=== PATIENT | male | born 1995 | race Caucasian/White ===

== ENCOUNTER 2023-12-15 09:54 | Emergency (ER) | payer MEDICAID, SELFPAY ==
[2023-12-15] VITALS (23 sets, daily range): BP systolic 126–148; BP diastolic 82–97; PULSE 81–113; RESP 13–28; O2SAT 98–100
--- NOTE | ~2023-12-15 | XR_ITS ---
EXAMINATION: XR chest 1V portable DATE: 12/15/2023 11:08 INDICATION: Cough and vomiting. TECHNIQUE: A single frontal view of the chest was obtained. COMPARISON: None. FINDINGS: There is no pneumonia, pleural effusion, or pneumothorax. The heart size is normal. IMPRESSION: 1. No acute cardiopulmonary disease. Reviewed, dictated and finalized at location A.
--- NOTE | 2023-12-15 10:18 | ECG_ITS ---
Test Date: 2023-12-15 11:31:18 Measurements Intervals [place] Rate: 76 P: 52 CT: 128 QRS: 80 QRSD: 85 T: 70 QT: 392 QTc: 443 Interpretive Statements SINUS RHYTHM ST ELEVATION IN ATERIOR LEADS, PROBABLE NORMAL EARLY REPOL PATTERN BORDERLINE ECG No previous ECG available for comparison Electronically Signed On 12-15-2023 11:39:47 CDT by Abner Unger D.O.
[2023-12-15] MEDS: ONDANSETRON INJ 4 MG/2 ML VIAL IV PUSH (10:29)
[2023-12-15] MEDS: LORazepam INJ (*CRX) 2 MG/ML VIAL 1 MG IV PUSH (10:29)
[2023-12-15 10:53] LABS: Basophils Absolute Auto 0.1 K/mm3 (0.0-0.1); Basophils Percent Auto 1.1 % (0.2-1.2); Eosinophils Absolute Auto 0.1 K/mm3 (0-0.3); Eosinophils Percent Auto 0.9 % (0-4.4); Hematocrit 42.5 % (42.0-52.0); Hemoglobin 15.3 g/dL (14.0-18.0); Immature Granulocyte Absolute 0.01 K/mm3 (0.00-0.031); Immature Granulocyte Percent A 0.2 % (0-0.5); Lymphocytes Absolute Auto 1.63 K/mm3 (0.9-3.2); Lymphocytes Percent Auto 30.7 % (18.3-44.2); Mean Corpuscular Hemoglobin 34.2 pg (26-34); Mean Corpuscular Volume 94.9 fl (80-100); Mean Platelet Volume 10.2 fl (7.4-10.4); Monocytes Absolute Auto 0.6 K/mm3 (0.1-0.6); Monocytes Percent Auto 10.5 % (2.6-8.5); Neutrophils Percent Auto 56.6 % (45.5-73.1); Platelet Count Result 326 k/mm3 (150-375); Red Blood Count 4.48 M/mm3 (4.6-6.20); Red Cell Distribution Width 12.7 % (11.5-14.5); White Blood Count 5.3 K/mm3 (4.5-10.0)
[2023-12-15] MEDS: SODIUM CHLORIDE 0.9% IV 1,000 ML 999 ML IV CONT ×2 (11:00→12:16)
[2023-12-15 11:04] LABS: Alanine Aminotransferase 50 U/L (6-50); Albumin Level 5.4 g/dL (3.5-5.1); Alkaline Phosphatase 101 U/L (38-126); Anion Gap 17 mmol/L (4-12); Aspartate Amino Transferase 87 U/L (17-59); Blood Urea Nitrogen 12 mg/dL (9-20); Calcium 10.1 mg/dL (8.4-10.2); Carbon Dioxide 29 mmol/L (22-30); Chloride 89 mmol/L (98-107); Estimated Glomerular Filt Rate > 60; Glucose 126 mg/dL (65-110); Magnesium 1.7 mg/dL (1.6-2.3); Potassium 4.1 mmol/L (3.4-5.0); Sodium 135 mmol/L (137-145)
[2023-12-15 11:05] LABS: Ethanol < 10 mg/dL (<10); Lactic Acid Reflex 2.8 mmol/L (0.7-2.0)
[2023-12-15 11:07] LABS: INR 0.9; Prothrombin Time 12.4 Seconds (11.1-14.7)
[2023-12-15 11:08] LABS: Partial Thromboplastin Time 25.7 Seconds (22.3-36.8)
[2023-12-15] MEDS: THIAMINE 500 MG/NS 100 ML 500 MG/100 ML BAG 200 MG IVPB (11:24)
[2023-12-15 11:43] LABS: Procalcitonin 0.1 ng/mL
--- NOTE | 2023-12-15 11:56 | ED.GENADULT ---
HPI - General Adult General Chief complaint: Alcohol Stated complaint: I can't control my body x 1 hour Time Seen by Provider: 12/15/23 10:14 History of Present Illness HPI narrative: Patient is a 28-year-old gentleman who presents emergency department with chief complaint of I feel shaky. Patient reports that he normally drinks about a handle a day of alcohol patient reports approximately 2 days ago he decided that he wanted to stop drinking and stop drinking a handle per day patient reports his last drink was in the last 24 hours reports he feels very shaky reports that he has no prior history of seizures in the past Related Data Allergies Allergy/AdvReac Type Severity Reaction Status Date / Time amoxicillin Allergy Unknown Anaphylaxis Verified 12/15/23 11:25 Penicillins Allergy Unknown Anaphylaxis Verified 12/15/23 11:25 Review of Systems Review of Systems: A 10 system review of systems was completed on the patient and is negative except for what is stated in the HPI. Nursing and ancillary documentation was reviewed. [facility] Family History Family History Father Diabetes mellitus Grandparent Diabetes mellitus Hypertension Mother Hypertension Social History Social History Smoking status: Never smoker Alcohol intake: current Exam Narrative: GENERAL: Well-appearing, well-nourished, and in no acute distress. HEAD: Normocephalic, atraumatic. EYES: PERRLA and EOMI. ENT: Nares clear, no rhinorrhea or epistaxis. Mucous membranes moist. NECK: Supple. CHEST: Clear to auscultation. No respiratory distress. HEART: Regular rate and rhythm. No murmur heard. Normal peripheral pulses. ABDOMEN: Soft, nontender, nondistended, normal active bowel sounds. EXTREMITIES: Normal range of motion. No edema. SKIN: Warm, dry, no rash. NEURO: No focal deficits. Alert and oriented x3. Slightly tremulous PSYCH: Normal mood and affect. Course Vital Signs Vital signs: Vital Signs Pulse Rate 95 12/15/23 10:15 Respiratory Rate 28 H 12/15/23 10:15 Pulse Oximetry 100 12/15/23 10:15 Pulse Rate 94 12/15/23 12:47 Respiratory Rate 20 12/15/23 12:47 Blood Pressure 129/97 H 12/15/23 12:16 Pulse Oximetry 99 12/15/23 12:30 Medical Decision Making Vital Signs Vital Signs: Vital Signs Pulse Rate 95 12/15/23 10:15 Respiratory Rate 28 H 12/15/23 10:15 Pulse Oximetry 100 12/15/23 10:15 Pulse Rate 94 12/15/23 12:47 Respiratory Rate 20 12/15/23 12:47 Blood Pressure 129/97 H 12/15/23 12:16 Pulse Oximetry 99 12/15/23 12:30 Lab Data 12/15/23 10:47 12/15/23 10:47 Labs: Lab Results 12/15/23 12/15/23 12/15/23 Range/Units 10:47 13:35 14:09 WBC 5.3 (4.5-10.0) K/mm3 RBC 4.48 L (4.6-6.20) M/mm3 Hgb 15.3 (14.0-18.0) g/dL Hct 42.5 (42.0-52.0) % MCV 94.9 (80-100) fl MCH 34.2 H (26-34) pg MCHC 36.0 (32-36) g/dl RDW 12.7 (11.5-14.5) % Plt Count 326 (150-375) k/mm3 MPV 10.2 (7.4-10.4) fl Immature Gran % (Auto) 0.2 (0-0.5) % Neut % (Auto) 56.6 (45.5-73.1) % Lymph % (Auto) 30.7 (18.3-44.2) % [place] % (Auto) 10.5 H (2.6-8.5) % Eos % (Auto) 0.9 (0-4.4) % Baso % (Auto) 1.1 (0.2-1.2) % Lymph # (Auto) 1.63 (0.9-3.2) K/mm3 [place] # (Auto) 0.6 (0.1-0.6) K/mm3 Eos # (Auto) 0.1 (0-0.3) K/mm3 Baso # (Auto) 0.1 (0.0-0.1) K/mm3 Abs Immat Gran (auto) 0.01 (0.00-0.031) K/mm3 Absolute Neuts (auto) 3.0 (1.3-6.7) K/mm3 Absolute Nucleated RBC 0.000 (0.0-0.012) K/mm3 Nucleated RBC % 0.0 (0.0-0.2) % PT 12.4 (11.1-14.7) Seconds INR 0.9 APTT 25.7 (22.3-36.8) Seconds Sodium 135 L (137-145) mmol/L Potassium 4.1 (3.4-5.0) mmol/L Chloride 89 L (98-107) mmol/L Carbon Dioxide 29 (22-30) m
[2023-12-15] MEDS: MAGNESIUM SULF 1 GM/D5W 100 ML 1 GM/100 ML BAG IVPB (12:16)
[2023-12-15 13:45] LABS: Appearance Urine Clear (Clear); Bacteria Urine None Seen /hpf; Bilirubin Urine Negative (Negative); Blood Urine Negative (Negative); Color Urine Yellow (Yellow); Glucose Urine UA Negative (Negative); Ketones Urine 2+ mg/dL (Negative); Leukocyte Esterase Ur Negative LEU/UL (Negative); Nitrate Urine Negative (Negative); Non Pathogenic Casts 0-2; Protein Urine Trace mg/dL (Negative); Squamous Epithelial Cell Urine None Seen /hpf (Few); WBC Urine 0-5 /hpf (0-3); pH Urine 8.5 (5.0-9.0)
[2023-12-15 13:51] LABS: Reflex Lactic Acid Yes or No Add Lactic
[2023-12-15 14:00] LABS: Amphetamine Screen Urine Negative (Negative); Barbiturate Screen Urine Negative (Negative); Benzodiazepines Screen Urine Negative (Negative); Cannabinoid Screen Urine Positive (Negative); Cocaine Screen Urine Negative (Negative); Methadone Screen Urine Negative (Negative); Opiate Screen Urine Negative (Negative); Phencyclidine Screen Urine Negative (Negative)
[2023-12-15 14:05] LABS: Add Urine Microscopic? YES
[2023-12-15 14:32] LABS: Lactic Acid 0.7 mmol/L (0.7-2.0)
== END 2023-12-15 14:35 | disposition home or self-care (01) ==
PROVIDERS: Emergency Provider Emergency Medicine
DX: F10.230 Alcohol dependence with withdrawal, uncomplicated (principal); Y90.0 Blood alcohol level of less than 20 mg/100 ml; R94.31 Abnormal electrocardiogram [ECG] [EKG]
CPT/HCPCS: 36415; 71045; 80053; 80307; 81001; 83605; 83735; 84145; 85025; 85610; 85730; 93005; 96365; 96367; 96375; 99284; J2060; J2405; J3411; J3475; J7030

== ENCOUNTER 2024-03-31 11:02 | Emergency (ER) | payer OTHER, SELFPAY ==
[2024-03-31 11:03] VITALS: BP 142/98; PULSE 98; RESP 15; TEMP 36.8; O2SAT 98
[2024-03-31 12:00] VITALS: BP 136/97; PULSE 91; RESP 16; O2SAT 99
[2024-03-31 12:37] LABS: Basophils Absolute Auto 0.1 K/mm3 (0.0-0.1); Basophils Percent Auto 1.4 % (0.2-1.2); Hematocrit 45.2 % (42.0-52.0); Hemoglobin 16.4 g/dL (14.0-18.0); Lymphocytes Absolute Auto 1.47 K/mm3 (0.9-3.2); Lymphocytes Percent Auto 41.1 % (18.3-44.2); Mean Corpuscular HGB Conc 36.3 g/dl (32-36); Mean Corpuscular Hemoglobin 34.7 pg (26-34); Mean Corpuscular Volume 95.8 fl (80-100); Mean Platelet Volume 8.9 fl (7.4-10.4); Monocytes Absolute Auto 0.4 K/mm3 (0.1-0.6); Monocytes Percent Auto 10.9 % (2.6-8.5); Neutrophils Absolute Auto 1.7 K/mm3 (1.3-6.7); Neutrophils Percent Auto 46.6 % (45.5-73.1); Platelet Count Result 278 k/mm3 (150-375); Red Blood Count 4.72 M/mm3 (4.6-6.20); Red Cell Distribution Width 13.7 % (11.5-14.5); White Blood Count 3.6 K/mm3 (4.5-10.0)
[2024-03-31 12:47] LABS: Lactic Acid Reflex 3.3 mmol/L (0.7-2.0)
[2024-03-31 12:48] LABS: Alanine Aminotransferase 64 U/L (6-50); Alkaline Phosphatase 100 U/L (38-126); Anion Gap 15 mmol/L (4-12); Aspartate Amino Transferase 135 U/L (17-59); Blood Urea Nitrogen 7 mg/dL (9-20); Calcium 9.2 mg/dL (8.4-10.2); Carbon Dioxide 29 mmol/L (22-30); Chloride 98 mmol/L (98-107); Estimated CRCL calculation 134 ml/min; Estimated Glomerular Filt Rate > 60; Glucose 86 mg/dL (65-110); INR 0.9; Potassium 3.2 mmol/L (3.4-5.0); Prothrombin Time 12.3 Seconds (11.1-14.7); Sodium 142 mmol/L (137-145)
[2024-03-31 12:49] LABS: Partial Thromboplastin Time 24.5 Seconds (22.3-36.8)
--- NOTE | 2024-03-31 12:50 | ED.GENADULT ---
HPI - General Adult General Chief complaint: GI Bleed Stated complaint: blood in stool Time Seen by Provider: 03/31/24 11:58 History of Present Illness HPI narrative: 28-year-old male present to the emergency department for evaluation for blood when he wiped his bottom. Patient states this morning he had a bowel movement and noticed some blood when he wiped. Patient denies any pain with this. Patient denies any current abdominal pain. Patient is not on any blood thinners. Patient is unsure if he has any history of hemorrhoids. Related Data Allergies Allergy/AdvReac Type Severity Reaction Status Date / Time amoxicillin Allergy Unknown Anaphylaxis Verified 12/15/23 11:25 Penicillins Allergy Unknown Anaphylaxis Verified 12/15/23 11:25 Review of Systems Review of Systems: All systems reviewed & are unremarkable except as noted in HPI and below PMFSH Family History Family History Father Diabetes mellitus Grandparent Diabetes mellitus Hypertension Mother Hypertension Social History Social History Smoking status: Never smoker Alcohol intake: current Exam Narrative: APPEARANCE: Well appearing, no pain, no distress, well-nourished. HEAD: normocephalic, atraumatic. EYES: PERRLA/EOMI, conjunctivae clear. NOSE: Normal no drainage EARS:TMS clear with good light reflex. THROAT: Pharynx clear, no exudate. NECK: Supple. No adenopathy, no masses. RESPIRATORY: Airway patent, respirations nonlabored. Clear to auscultation bilaterally, no rales, rhonchi, wheezing. CARDIOVASCULAR: Regular rate and rhythm without murmurs rubs or gallops. ABDOMINAL: Soft, nontender, nondistended, normal bowel sounds MUSCULOSKELETAL: Moves all extremities. Strength/ROM intact, No edema, No calf tenderness. NEURO: Alert. Cranial nerves II through XII intact. Good gait. Good coordination SKIN: Warm, dry. Normal Color Rectal exam: Hemoccult negative stool with no external hemorrhoids visualized and no internal hemorrhoids palpated Course Vital Signs Vital signs: Vital Signs Temperature 98.2 F 03/31/24 11:03 Pulse Rate 98 03/31/24 11:03 Respiratory Rate 15 03/31/24 11:03 Blood Pressure 142/98 H 03/31/24 11:03 Pulse Oximetry 98 03/31/24 11:03 Oxygen Delivery Room Air 03/31/24 11:03 Temperature 98.2 F 03/31/24 11:03 Pulse Rate 80 03/31/24 13:00 Respiratory Rate 16 03/31/24 13:00 Blood Pressure 123/87 03/31/24 13:00 Pulse Oximetry 100 03/31/24 13:00 Oxygen Delivery Room Air 03/31/24 11:03 Medical Decision Making MDM Narrative Medical decision making narrative: 28-year-old male presents to the emergency department for evaluation for blood in his stool. Patient is afebrile with no leukocytosis and hemoglobin of 16.4. The patient does have an elevated lactic acid of 3.3 patient has no abdominal tenderness to palpation. Patient is being treated with a L of IV fluid. Patient was encouraged to increase his stool softeners and hose close follow-up with GI. All questions concerns were addressed. Differential Diagnosis Differential Diagnosis: Anal fissure, internal hemorrhoids, external hemorrhoids Vital Signs Vital Signs: Vital Signs Temperature 98.2 F 03/31/24 11:03 Pulse Rate 98 03/31/24 11:03 Respiratory Rate 15 03/31/24 11:03 Blood Pressure 142/98 H 03/31/24 11:03 Pulse Oximetry 98 03/31/24 11:03 Oxygen Delivery Room Air 03/31/24 11:03 Temperature 98.2 F 03/31/24 11:03 Pulse Rate 80 03/31/24 13:00 Respiratory Rate 16 03/31/24 13:00 Blood Pressure 123/87 03/31/24 13:00 Pulse Oximetry 100 03/31/24 13:00 Oxygen Delivery Room Air 03/31/24 11:03 Lab Data Lab results reviewed: Yes I reviewed the patient's lab results. 03/31/24 12:33 03/31/24 12:33 Labs: Lab Results 03/31/24 Range/Units
[2024-03-31 13:00] VITALS: BP 123/87; PULSE 80; RESP 16; O2SAT 100
[2024-03-31] MEDS: SODIUM CHLORIDE 0.9% IV 1,000 ML 999 ML IV CONT (13:00)
[2024-03-31 15:35] LABS: Reflex Lactic Acid Yes or No Add Lactic
== END 2024-03-31 13:20 | disposition home or self-care (01) ==
PROVIDERS: Emergency Provider Emergency Medicine
DX: K92.1 Melena (principal)
CPT/HCPCS: 36415; 80053; 83605; 85025; 85610; 85730; 99283; J7030

== ENCOUNTER 2024-09-11 10:30 | Emergency (ER) | payer BC, OTHER, SELFPAY ==
[2024-09-11] VITALS (8 sets, daily range): BP systolic 120–139; BP diastolic 70–92; PULSE 81–97; RESP 16–23; TEMP 36.4–37.2; O2SAT 96–100
--- NOTE | 2024-09-11 10:49 | ECG_ITS ---
Test Date: 2024-09-11 11:19:59 Measurements Intervals [place] Rate: 64 P: 69 HI: 158 QRS: 81 QRSD: 102 T: 76 QT: 427 QTc: 443 Interpretive Statements SINUS RHYTHM WITH MARKED SINUS ARRHYTHMIA PEAKED T WAVES- CONSIDER HYPERKALEMIA BASELINE ARTIFACT- I, II, III, AVR, AVL, AVF, V1-V6 ABNORMAL ECG Compared to ECG 12/15/2023 11:31:18 PEAKED T WAVES NOW PRESENT Electronically Signed On 09-11-2024 11:30:21 CDT by Abner Unger D.O.
--- NOTE | 2024-09-11 10:59 | ED.GENADULT ---
HPI - General Adult General Chief complaint: Nausea/Vomiting/Diarrhea Stated complaint: anxiety, flu a Time Seen by Provider: 09/11/24 10:43 History of Present Illness HPI narrative: 28-year-old male presents emergency department for evaluation for nausea vomiting and recent diagnosis of influenza. Patient was diagnosed with flu on Saturdays had persistent nausea vomiting decreased p.o. intake since then. Patient does prior history heavy alcohol abuse but has only been having 2 drinks a day. Patient does live with his mother. Patient does complain of some abdominal cramping but denies any abdominal pain. Patient is anxious upon arrival. Related Data Allergies Allergy/AdvReac Type Severity Reaction Status Date / Time amoxicillin Allergy Unknown Anaphylaxis Verified 09/11/24 11:07 Penicillins Allergy Unknown Anaphylaxis Verified 09/11/24 11:07 Review of Systems Review of Systems: All systems reviewed & are unremarkable except as noted in HPI and below PMFSH Family History Family History Father Diabetes mellitus Grandparent Diabetes mellitus Hypertension Mother Hypertension Social History Social History Smoking status: Never smoker Alcohol intake: current Exam Narrative: APPEARANCE: Ill-appearing HEAD: normocephalic, atraumatic. EYES: PERRLA/EOMI, conjunctivae clear. NOSE: Normal no drainage EARS:TMS clear with good light reflex. THROAT: Pharynx clear, no exudate. NECK: Supple. No adenopathy, no masses. RESPIRATORY: Airway patent, respirations nonlabored. Clear to auscultation bilaterally, no rales, rhonchi, wheezing. CARDIOVASCULAR: Regular rate and rhythm without murmurs rubs or gallops. ABDOMINAL: Soft, nontender, nondistended, normal bowel sounds MUSCULOSKELETAL: Moves all extremities. Strength/ROM intact, No edema, No calf tenderness. NEURO: Alert. Cranial nerves II through XII intact. Grossly intact SKIN: Warm, dry. Normal Color Course Vital Signs Vital signs: Vital Signs Temperature 97.6 F 09/11/24 10:49 Pulse Rate 96 09/11/24 10:49 Respiratory Rate 22 H 09/11/24 10:49 Blood Pressure 135/90 09/11/24 10:49 Pulse Oximetry 100 09/11/24 10:49 Oxygen Delivery Room Air 09/11/24 10:49 Temperature 97.7 F 09/11/24 14:39 Pulse Rate 96 09/11/24 14:39 Respiratory Rate 16 09/11/24 14:39 Blood Pressure 120/70 09/11/24 14:39 Pulse Oximetry 100 09/11/24 14:39 Oxygen Delivery Room Air 09/11/24 10:49 Medical Decision Making MDM Narrative Medical decision making narrative: 28-year-old male presents emergency department for evaluation for nausea vomiting. Patient is currently afebrile with no leukocytosis hemoglobin of 16. No acute abnormalities on the patient's CMP patient does have a mildly elevated anion gap and blood glucose but patient was treated with IV fluids. Patient did have an elevated lactic acid that was 4.0 but did improved 1.0 with rehydration. On re-evaluation patient states he does feel significantly improved and is resting comfortably. Patient is tolerating p.o.. Patient was negative plans a history and for COVID. Patient was discharged home with Ativan for anxiety, Zofran for nausea control and instructions to follow a clear liquid diet. Differential Diagnosis Differential Diagnosis: Alcohol withdrawal, nausea vomiting diarrhea, dehydration, gastroenteritis, colitis Vital Signs Vital Signs: Vital Signs Temperature 97.6 F 09/11/24 10:49 Pulse Rate 96 09/11/24 10:49 Respiratory Rate 22 H 09/11/24 10:49 Blood Pressure 135/90 09/11/24 10:49 Pulse Oximetry 100 09/11/24 10:49 Oxygen Delivery Room Air 09/11/24 10:49 Temperature 97.7 F 09/11/24 14:39 Pulse Rate 96 09/11/24 14:39 Respiratory Rate 16 09/11/24 14:39 Blood Pressure 120/70 09/11/24 14:39 Pulse Oximetry 100 09/11/24 14:39 Oxygen Delivery Room Air 09/11/24 10:49 Lab Data Lab results reviewed: Yes I reviewed the patient's lab results. 09/11/24 11:15 09/11/24 11:15 Labs: Lab Results 09/11/24 09/11/24 Range/Units 11:15 13:41 WBC 7.5 (4.5-10.0) K/mm3 RBC 4.82 (4.6-6.20) M/mm3 Hgb 16.0 (14.0-18.0) g/dL Hct 45.0 (42.0-52.0) % MCV 93.4 (80-100) fl MCH 33.2 (26-34) pg MCHC 35.6 (32-36) g/dl RDW 11.9 (11.5-14.5) % Plt Count 302 (150-375) k/mm3 MPV 9.6 (7.4-10.4) fl Immature Gran % (Auto) 0.7 H (0-0.5) % Neut % (Auto) 75.8 H (45.5-73.1) % Lymph % (Auto) 15.1 L (18.3-44.2) % [place] % (Auto) 5.4 (2.6-8.5) % Eos % (Auto) 2.5 (0-4.4) % Baso % (Auto) 0.5 (0.2-1.2) % Lymph # (Auto) 1.13 (0.9-3.2) K/mm3 [place] # (Auto) 0.4 (0.1-0.6) K/mm3 Eos # (Auto) 0.2 (0-0.3) K/mm3 Baso # (Auto) 0.0 (0.0-0.1) K/mm3 Abs Immat Gran (auto) 0.05 H (0.00-0.031) K/mm3 Absolute Neuts (auto) 5.7 (1.3-6.7) K/mm3 Absolute Nucleated RBC 0.000 (0.0-0.012) K/mm3 Nucleated RBC % 0.0 (0.0-0.2) % Sodium 140 (137-145) mmol/L Potassium 3.6 (3.4-5.0) mmol/L Chloride 99 (98-107) mmol/L Carbon Dioxide 16 L (22-30) mmol/L Anion Gap 25 H (4-12) mmol/L BUN 13 D (9-20) mg/dL Creatinine 0.71 (0.7-1.3) mg/dL Estim Creat Clear Calc 129 ml/min Estimated GFR > 60 (59 - ) Glucose 151 H (65-110) mg/dL Lactic Acid 4.4 H* 1.0 (0.7-2.0) mmol/L Calcium 9.5 (8.4-10.2) mg/dL Total Bilirubin 0.7 (0.2-1.3) mg/dL AST 210 H (17-59) U/L ALT 81 H (6-50) U/L Alkaline Phosphatase 105 (38-126) U/L Total Protein 9.0 H (6.3-8.2) g/dL Albumin 5.3 H (3.5-5.1) g/dL Lipase 123 (23-300) U/L Influenza A (RT-PCR) Negative (Negative) Influenza B (RT-PCR) Negative (Negative) RSV (RT-PCR) Negative (Negative) SARS-CoV-2 RNA (RT-PCR) Negative (Negative) Discharge Plan Discharge Clinical Impression: Nausea and vomiting Patient Disposition: Home, Self-Care Condition: Stable Instructions: Antibiotic Form, Clear Liquid Diet (ED), Acute Nausea and Vomiting (ED) Additional Instructions: Ativan as needed for anxiety. Zofran as needed for nausea control. Clear liquid diet for the next 1-3 days. Advance to bland diet as tolerated. Have close follow-up with your primary care physician. If you have any worsening symptoms then please call or return to the emergency department. Patient Language: Polish Prescriptions: New lorazepam [Ativan] 0.5 mg tablet 0.5 mg PO BID PRN (Reason: anxiety) Qty: 10 0RF ondansetron 4 mg tablet,disintegrating 4 mg PO Q8H PRN (Reason: nausea and vomiting) Qty: 14 0RF No Action chlordiazepoxide HCl 25 mg capsule 25 mg PO Q6-12H PRN (Reason: alcohol withdrawal) Qty: 15 0RF Rx Instructions: day 1 50 mg every 6-12 hrs, day 2 25mg every 6 hrs, day 3 25mg twice a day, day 4 25mg at bedtime Follow-up/Referrals: UNKNOWN,DOCTOR [Primary Care Provider] - Stand Alone Forms: Work/School Release IP
[2024-09-11] MEDS: SODIUM CHLORIDE 0.9% IV 2,000 ML 999 ML IV CONT (11:07)
[2024-09-11] MEDS: LORazepam INJ (*CRX) 2 MG/ML VIAL IV PUSH (11:08)
[2024-09-11] MEDS: ONDANSETRON INJ 4 MG/2 ML VIAL IV PUSH (11:09)
[2024-09-11 11:23] LABS: Basophils Percent Auto 0.5 % (0.2-1.2); Eosinophils Absolute Auto 0.2 K/mm3 (0-0.3); Eosinophils Percent Auto 2.5 % (0-4.4); Immature Granulocyte Absolute 0.05 K/mm3 (0.00-0.031); Immature Granulocyte Percent A 0.7 % (0-0.5); Lymphocytes Absolute Auto 1.13 K/mm3 (0.9-3.2); Lymphocytes Percent Auto 15.1 % (18.3-44.2); Mean Corpuscular HGB Conc 35.6 g/dl (32-36); Mean Corpuscular Hemoglobin 33.2 pg (26-34); Mean Corpuscular Volume 93.4 fl (80-100); Mean Platelet Volume 9.6 fl (7.4-10.4); Monocytes Absolute Auto 0.4 K/mm3 (0.1-0.6); Monocytes Percent Auto 5.4 % (2.6-8.5); Neutrophils Absolute Auto 5.7 K/mm3 (1.3-6.7); Neutrophils Percent Auto 75.8 % (45.5-73.1); Platelet Count Result 302 k/mm3 (150-375); Red Blood Count 4.82 M/mm3 (4.6-6.20); Red Cell Distribution Width 11.9 % (11.5-14.5); White Blood Count 7.5 K/mm3 (4.5-10.0)
[2024-09-11 11:35] LABS: Alanine Aminotransferase 81 U/L (6-50); Albumin Level 5.3 g/dL (3.5-5.1); Alkaline Phosphatase 105 U/L (38-126); Anion Gap 25 mmol/L (4-12); Aspartate Amino Transferase 210 U/L (17-59); Bilirubin,Total 0.7 mg/dL (0.2-1.3); Blood Urea Nitrogen 13 mg/dL (9-20); Calcium 9.5 mg/dL (8.4-10.2); Carbon Dioxide 16 mmol/L (22-30); Chloride 99 mmol/L (98-107); Estimated CRCL calculation 129 ml/min; Estimated Glomerular Filt Rate > 60; Glucose 151 mg/dL (65-110); Lactic Acid Reflex 4.4 mmol/L (0.7-2.0); Lipase 123 U/L (23-300); Potassium 3.6 mmol/L (3.4-5.0); Sodium 140 mmol/L (137-145)
--- OUTSIDE RECORDS SUMMARY | 2024-09-11 11:52 | XMS_ITS | Clinical Summary ---
Author Organization [facility] Address [address] [place] [address] Phone Care Team Providers Care Product Marketing Analyst Name Role Phone Mendoza Izquierdo APRN, EXECUTIVE CYBER LEADER Primary Care Pr ovider Allergies Active Allergy Reactions Criticality Noted Date Comments Penicillins Anaphylaxis,Swelling High 05/04/2020 Medications naltrexone (DEPADE) 50 MG Tablet Take 50 mg by mouth daily. Active escitalopram (LEXAPRO) 10 MG Tablet Take 10 mg by mouth daily. Active prazosin (MINIPRESS) 1 MG Capsule Take 1 mg by mouth nightly. Active ondansetron (ZOFRAN-ODT) 4 MG TABLET DISPERSIBLE Take 1 Tablet by mouth every 8 hours as needed for Nausea - 1st line. 15 Tablet 09/09/2024 Active Active Problems Problem Noted Date Diagnosed Date Alcohol use disorder, moderate, dependence 07/25 CINTHYA (generalized anxiety disorder) 06/18/2024 Alcohol use disorder, moderate, in early remissi on 04/09/2024 Encounters Date Type Department Care Team Description 09/10/2024 Travel 08/29/2024 8:30 AM CDT Outpatient Clinic Visit [facility] [address] [place] [address] Yessi Carrillo, PAM Alcohol use disorder, moderate, in early remission (HCC) (Primary Dx); CINTHYA (generalized anxiety disorder) Discharge Disposition: Discharged to home or Selfcare 08/27/2024 Travel 08/08/2024 10:45 AM PHOTOGRAPHY COLORIST Outpatient Clinic Visit [facility] [address] [place] [address] Yessi Carrillo LCPC Alcohol use disorder, moderate, in early remission (HCC) (Primary Dx); CINTHYA (generalized anxiety disorder) Discharge Disposition: Discharged to home or Selfcare 08/08/2024 Travel 08/05/2024 Travel 07/25/2024 11:00 AM PHOTOGRAPHY COLORIST Outpatient [facility] [address] [facility] [place] [address] Yessi Carrillo LCPC Alcohol use disorder, moderate, dependence (HCC) (Primary Dx); CINTHYA (generalized anxiety disorder) Discharge Disposition: Discharged to home or Selfcare 07/23/2024 Travel 07/15/2024 Travel 07/11/2024 10:00 AM PHOTOGRAPHY COLORIST Outpatient [facility] [address] [place] [address] Fouzia Jamil LCPC Alcohol use disorder, moderate, dependence (HCC) (Primary Dx); CINTHYA (generalized anxiety disorder) Discharge Disposition: Discharged to home or Selfcare 07/10/2024 Travel 07/08/2024 Travel 07/02/2024 Telephone [facility] [address] [facility] [place] [address] Fouzia Jamil LCPC 07/01/2024 Travel 06/25/2024 10:30 AM PHOTOGRAPHY COLORIST Outpatient Clinic [facility] [place] [address] Fouzia Jamil LCPC CINTHYA (generalized anxiety disorder) (Primary Dx); Alcohol use disorder, moderate, in early remission (HCC) Discharge Disposition: Discharged to home or Selfcare 06/25/2024 8:30 AM PHOTOGRAPHY COLORIST Outpatient Clinic [facility] [address] [facility] [place] [address] Fouzia Jamil LCPC CINTHYA (generalized anxiety disorder) (Primary Dx); Alcohol use disorder, moderate, in early remission (HCC) Discharge Disposition: Discharged to home or Selfcare 06/24/2024 Travel 06/18/2024 10:30 AM PHOTOGRAPHY COLORIST Outpatient Clinic Visit [facility] [address] [place] [phone] Fouzia Jamil LCPC CINTHYA (generalized anxiety disorder) (Primary Dx); Alcohol use disorder, moderate, in early remission (HCC) Discharge Disposition: Discharged to home or Selfcare 06/18/2024 Travel from Last 3 Months Immunizations Immunization Administration Dates Next Due Covid-19, Mrna, Lnp-s, Pf, 3 0 Mcg/0.3 Ml Dose (Kongregate) 09/07/2020 DTAP VACCINE 08/30/2002,,02/04/1998,11/20 Hepatitis A Vaccine, Pediatric/adolescent, 2 Dose Schedule 10/13/2008,04/14/2008 Hepatitis A, Pediatric, Unsp ecified Formulation 10/13/2008,04/14/2008 Hepatitis B Vaccine, Pediatric/adolescent 1997,1997 Hib Vaccine,unspecified Formulation 04/07/1998,0 02/04/1998,1997 Inactivated Polio Vaccine 09/02/2002,05/1999,02/04/1998,11/20 Influenza Vaccine, Quadrivalent, PF 03/18/2021 Influenza Vaccine,unspecifie d Formulation 04/14/2008 MMR Vaccine 08/30/2002,12/31/1998 Meningococcal C Conjugate Vaccine 10/13/2008 TDAP Vaccine 04/17/2020,10/13/2008 Varicella Vaccine Live 04/14/2008,10/05/1998 Family History Medical History Relation Name Comments Diabetes Father Poncho Depression Mother Padmaja Diabetes Mother Padmaja High Cholesterol Mother Padmaja Hypertension Mother Padmaja Alcohol Abuse Paternal Grandfather Alcohol Abuse Paternal Uncle Relation Name Status Comments Father Poncho Alive Maternal Grandfather Alive Maternal Grandmother Alive Mother Padmaja Alive Paternal Grandfather Paternal Grandmother Paternal Uncle Social History Tobacco Use Types Packs/Day Years Used Date Smoking Tobacco: Never Smokeless Tobacco: Never Tobacco Cessation:Counseling Given: No Alcohol Use Standard Drinks/Week Comments Not Currently 100 (1 standard drink = 0.6 oz p ure alcohol) Currrently in recovery [facility] Utilities Answer Date Recorded In the past 12 months has e electric, gas, oil, or water company threatened to shut off services in your home? No 05/01/2024 Social Connection and Isolation Panel [NHANES] A nswer Date Recorded In a typical week, how many times do you talk on the phone with family, friends, or neighbors? Patient declined 05/01/2024 How often do you get togethe r with friends or relatives? Patient declined 05/01/2024 How often do you attend jain or muslim serv ices? Patient declined 05/01/2024 Do you belong to any clubs o r organizations such as jain groups, unions, fraternal or athletic groups, or school groups? No 05/01/2024 How often do you attend meet ings of the clubs or organizations you belong to? Patient declined 05/01/2024 Are you , , di vorced, , never , or living with a partner? Never 05/01/2024 AUDIT-C Answer Date Recorded Q1: How often do you have a drink containing alc ohol? Patient declined 05/01/2024 Q2: How many drinks containi ng alcohol do you have on a typical day when you are drinking? Patient declined 05/01/2024 Q3: How often do you have si x or more drinks on one occasion? Patient declined 05/01/2024 Overall Financial Resource Strain (CARDIA) Answe r Date Recorded How hard is it for you to pa y for the very basics like food, housing, medical care, and heating? Not very hard 05/01/2024 PHQ-2 Answer Date Recorded Total Score - Questions 1-9 0 04/13 [facility] Occupat ional Health - Occupational Stress Questionnaire Answer Date Recorded Do you feel stress - tense, restless, nervous, or anxious, or unable to sleep at night because your mind is troubled all the time - these days? Patient declined 05/01/2024 Exercise Vital Sign Answer Date Recorde d On average, how many days pe r week do you engage in moderate to strenuous exercise (like a brisk walk)? Patient declined On average, how many minutes do you engage in exercise at this level? Patient declined 05/01/2024 Hunger Vital Sign Answer Date Recorded Within the past 12 months, y ou worried that your food would run out before you got the money to buy more. Patient declined Within the past 12 months, t he food you bought just didn't last and you didn't have money to get more. Patient declined PRAPARE - Transportation Answer Date Re corded In the past 12 months, has l ack of transportation kept you from medical appointments or from getting medications? No 04/13 In the past 12 months, has l ack of transportation kept you from meetings, work, or from getting things needed for daily living? No 05/01/2024 Housing Stability Vital Sign Answer Jason e Recorded In the last 12 months, was t here a time when you were not able to pay the mortgage or rent on time? Patient declined 05/01/20 24 Number of Times Moved in the Last Year Not on fi le 05/01/2024 At any time in the past 12 m [facility], were you homeless or living in a fci (including now)? Patient declined 05/01/2024 Sexually Active Control Partners Comments Not Currently Sex and Gender Information Value Date Recorded Sex Assigned at Not on file Legal Sex Male 2:35 PM CDT Gender Identity Not on file Sexual Orientation Not on file Last Filed Vital Signs Vital Sign Reading Time Taken Comments Blood Pressure 142/76 05/02/2024 3:14 PM PHOTOGRAPHY COLORIST Pulse 100 05/02/2024 3:14 PM PHOTOGRAPHY COLORIST Temperature 36.9 C (98.5 F) 05/02/2024 3:14 PM PHOTOGRAPHY COLORIST Respiratory Rate 16 05/02/2024 3:14 PM PHOTOGRAPHY COLORIST Oxygen Saturation 97% 05/02/2024 3:14 PM PHOTOGRAPHY COLORIST Inhaled Oxygen Concentration - - Weight 72 kg (158 lb 12.8 oz) 05/02/2024 3:14 PM PHOTOGRAPHY COLORIST Height 182.9 cm (6') 05/02/2024 3:14 PM PHOTOGRAPHY COLORIST Body Mass Index 21.54 05/02/2024 3:14 PM PHOTOGRAPHY COLORIST Plan of Treatment Upcoming Encounters Date Type Department Care Team (Latest Contact Info) Description 09/12/2024 11:15 AM CDT Outpatient [facility] [address] [place] [address] Yessi Carrillo LCPC [address] [place] [address] Discharge Disposition: Discharged to home or Selfcare 09/26/2024 8:30 AM CDT Outpatient Clinic Visit [facility] [address] [place] [address] Yessi Carrillo LCPC 1 [place] [address] 05/01/2025 3:15 PM PHOTOGRAPHY COLORIST Office Visit [facility] Medical [facility] [address] [place] [address] Mendoza Izquierdo, VETERINARY X RAY OPERATOR, EXECUTIVE CYBER LEADER [address] [address] Health Maintenance Due Date Last Done Comments Hepatitis C Virus (HCV) Screening 1997 Hepatitis B Immunization (3 of 3 - 3-dose series) 04/02/1998 1997, 1997 Human Papillomavirus (HPV) Immunization (1 - Male 3-dose series) 2012 SARS-COV-2 Immunization (2 - season) 2024 09/07/2020 Influenza Immunization (Season Ended) 2025 03/18/2021, 04/14/2008 DTaP/Tdap/Td Immunization (7 - Td or Tdap) 04/17/2030 04/17/2020, 10/13/2008, 08/30/2002, Additional history exists Respiratory Syncytial Virus (RSV) Immunization (Adult) (1 - 1-dose 75+ series) 2072 TdaP Immunization Discontinued 04/17/2020, 10/13/2008 Meningococcal Immunization (ACWY) Aged Out No longer eligible based on patient's age to complete this topic Pneumococcal Immunization Combined Discontinued Rotavirus Immunization Aged Out No lo nger eligible based on patient's age to complete this topic Goals Goal Patient Goal Type Associated Problems Recent Progress Patient-Stated? Author I want to learn to not be codependent . Behavioral Health Improving( 9:42 AM CDT) Yes Fouzia Jamil, [facility] Note: Goal/Objective: Increase ability to set boundaries and cope with mental health symptoms. Anticipated Time Frame for Goal Completion: 6 months Goal Reviewed with: patient Readiness to change: Thinking about making a change Department associated with goal: [facility] Steps to achieve goal: will identify at least two coping skills/activities/habits that have helped to manage anxiety in the past. will identify at least three new coping skills/activities/habits that may help to prevent and/or cope with anxiety. 3. will identify a plan to implement coping skills and follow this plan for two weeks and evaluate the impact on anxiety 4. Will attend individual and/or group therapy at least 1x/month at least 6 sessions Insurance MEDICAID [facility] Care Teams Product Marketing Analyst Relationship Specialty Start Date End Date Mendoza Izquierdo APRN, EXECUTIVE CYBER LEADER [address] [place] [phone] PCP - General Advanced Practice Nurse 05/02/24
--- OUTSIDE RECORDS SUMMARY | 2024-09-11 11:52 | XMS_ITS | Encounter Summary ---
Author Organization [facility] Address [address] [place] [address] Phone Care Team Providers Care Retail Route Supervisor Name Role Phone Mendoza Izquierdo APRN, CNP Primary Care Pr ovider Encounter Details Date Type Department Care Team (Late st Contact Info) Description 07/02/2024 Telephone [facility] [address] [place] [phone] Fouzia Jamil, [facility] [address] [place] [address] Social History Tobacco Use Types Packs/Day Years Used Date Smoking Tobacco: Never Smokeless Tobacco: Never Alcohol Use Standard Drinks/Week Comments Not Currently 100 (1 standard drink = 0.6 oz p ure alcohol) Currrently in recovery [facility] Utilities Answer Date Recorded In the past 12 months has [employer], gas, oil, or water [employer] threatened to shut off services in your home? No 05/01/2024 Social Connection and Isolation Panel [NHANES] A nswer Date Recorded In a typical week, how many times do you talk on the phone with family, friends, or neighbors? Patient declined 05/01/2024 How often do you get togethe r with friends or relatives? Patient declined 05/01/2024 How often do you attend mormon or mormonism serv ices? Patient declined 05/01/2024 Do you belong to any clubs o r organizations such as mormon groups, unions, fraternal or athletic groups, or [...] Total Score - Questions 1-9 0 04/13 [facility] Occupat ional [facility] - Occupational Stress Questionnaire Answer Date Recorded [...] any time in the past 12 m [facility], were you homeless or living in a [place] [facility] facility (including now)? Patient declined 05/01/2024 Sexually Active Control Partners Comments Not Currently Sex and Gender Information Value Date Recorded Sex Assigned at Not on file Legal Sex Male 2:35 PM CDT Gender Identity Not on file Sexual Orientation Not on file documented as of this encounter Plan of Treatment Upcoming Encounters Date Type Department Care Team (Latest Contact Info) Description 09/12/2024 11:15 AM CDT Outpatient [facility] [address] [place] [address] Yessi Carrillo, LINE MANAGER [address] [place] [address] Discharge Disposition: Discharged to home or Selfcare 09/26/2024 8:30 AM CDT Outpatient Clinic Visit [facility] [address] [place] [address] Yessi Carrillo, LINE MANAGER [address] [place] [address] 05/01/2025 3:15 PM PARTNER ALLIANCE MANAGER Office Visit [facility] - Family Medicine [facility] [address] [place] [address] Mendoza Izquierdo APRN, PERFORMANCE MANAGER [address] [address] documented as of this encounter Goals Goal Patient Goal Type Associated Problems Recent Progress Patient-Stated? Author I want to learn to not be codependent . Behavioral Health Improving( 9:42 AM CDT) Yes Fouzia Jamil, [facility] Note: Goal/Objective: Increase ability to set boundaries and cope with mental health symptoms. Anticipated Time Frame for Goal Completion: 6 months Goal Reviewed with: patient Readiness to change: Thinking about making a change Department associated with goal: [facility] Steps to achieve goal: [...] at least 1x/month at least 6 sessions documented as of this encounter Visit Diagnoses Not on filedocumented in this encounter Additional Health Concerns Assessment Noted Time PHQ-9 Depression Total Score: 0 05/02/20 3:03 PM PARTNER ALLIANCE MANAGER documented as of this encounter Care Teams Retail Route Supervisor Relationship Specialty Start Date End Date Mendoza Izquierdo, YOLY, TE [address] [address] PCP - General Advanced Practice Nurse 05/02/24 documented as of this encounter
--- OUTSIDE RECORDS SUMMARY | 2024-09-11 11:52 | XMS_ITS | Clinical Summary ---
Author Organization [facility] Address [address] [place] [address] Care Team Providers Care Fermenter Wine Name Role Phone Irwin Campos MD Primary Care Provider [phone] [facility],non-owned Affiliates and Associated Physician Practices is amultiple site organization consisting of ambulatory clinics and hospital sitesin [place], [place], [place] and [place]. This disclosure is being madepursuant to the Care Everywhere program and may not contain all information available regarding this patient. Last updated 18.[facility] Allergies Active Allergy Reactions Criticality Noted Date Comments Penicillins Anaphylaxis,Swelling High 05/04/2020 Medications * Be aware that medications may not be up to date on this document. Alwaysverify current medications with the patient. Medication Sig Dispensed Refills Start Date End Date Status mirtazapine (REMERON) 30 MG tabletIndications:De pression with anxiety Take 1 (one) tablet by mouth at bedtime 30 tablet 06/28/2021 Active omeprazole (PRILOSEC) 20 MG capsule Take 1 (one) capsule by mouth once daily 30 capsule 2 06/29/2021 Active NAC 600 MG capsule TAKE 1 CAPSULE BY MOUTH TWICE A DAY 05/05/2021 Active gabapentin (NEURONTIN) 300 MG capsule TAKE 1 CAPSULE BY MOUTH THREE TIMES A DAY 05/05/2021 Active LATUDA 40 MG tablet TAKE 1 TABLET BY MOUTH EVERY DAY AFTER DINNER 05/15/2021 Active propranolol (INDERAL) 10 MG tablet Take 1 (one) tablet by mouth 3 times daily 05/05/2021 Active QUEtiapine (SEROQUEL) 300 MG tablet TAKE 1 TABLET BY MOUTH EVERY DAY AT BEDTIME 05/05/2021 Active hydrOXYzine HCl (Atarax) 25 MG tabletIndications:Bi polar disorder, current episode mixed, moderate (HCC) TAKE 1 TABLET BY MOUTH FOUR TIMES A DAY NEEDED FOR ITCHING 30 tablet 09/28/2022 Active lithium CR (Lithobid) 300 MG tabletIndications:Bi polar disorder, current episode mixed, moderate (HCC) TAKE 1 TABLET BY MOUTH EVERY 12 HOURS 60 tablet 1 11/11/2022 Active traZODone (Desyrel) 50 MG tabletIndications:Bi polar disorder, current episode mixed, moderate (HCC) TAKE 1-2 TABLETS BY MOUTH ONCE NIGHTLY NEEDED FOR INSOMNIA 60 tablet 1 12/02/2022 Active buPROPion XL 24hr (Wellbutrin-XL) 150 MG tabletIndications:Bi polar disorder, current episode mixed, moderate (HCC) TAKE 1 TABLET BY MOUTH EVERY DAY IN THE MORNING 30 tablet 02/22/2023 Active Active Problems Problem Noted Date Diagnosed Date Depression with anxiety 01/28/2021 Alcoholism 01/28/2021 Immunizations Name Administration Dates Next Due [email or web address] primary monoval ent 12+ yr 0.3mL Purple cap 09/07/2020 DTaP VACCINE IM (6wk-6yrs) 08/30/2002,,02/04/1998,11/20 HEP A PEDS 2 DOSE 10/13/2008,04/14/2008 HEP B VACCINE, PED/ADOL 1997,1997 HIB VACCINE 04/07/1998,02/04/1998,1997 INFLUENZA VACCINE 04/14/2008 INFLUENZA VACCINE, QUADR. (F LUZONE; FLULAVAL; FLUARIX; AFLURIA QUADRIVALENT; 6MO+), 0.5 ML (IIV4) 03/18/2021 MENINGOCOCCAL CONJUGATE (MCV4P) 10/13/2008 MMR 08/30/2002,12/31/1998 POLIO IPV 09/02/2002, 9,02/04/1998,11/20 TDAP (7yrs+) 04/17/2020,10/13/2008 VARICELLA 04/14/2008,10/05/1998 Family History Medical History Relation Name Comments Diabetes - Type 2 Father Diabetes - Type 2 Maternal Grandfather Depression Maternal Grandmother Other Maternal Grandmother heart p roblems Depression Mother Hypertension Mother Cancer - Other Paternal Grandfather Relation Name Status Comments Father Alive Maternal Grandfather Maternal Grandmother Mother Alive Paternal Grandfather Social History Tobacco Use Types Packs/Day Years Used Date Smoking Tobacco: Never Smokeless Tobacco: Never Tobacco Cessation:Counseling Given: Not Answered Alcohol Use Standard Drinks/Week Comments Not Currently 0 (1 standard drink = 0.6 oz pur e alcohol) sober since 12/2020 PHQ-2 Answer Date Recorded PHQ2 TOTAL SCORE 6 06/08/2022 Sex and Gender Information Value Date Recorded Sex Assigned at Male 01/27/2021 5:10 PM CDT Gender Identity Male 01/27/2021 5:10 PM CDT Sexual Orientation Not on file Last Filed Vital Signs Vital Sign Reading Time Taken Comments Blood Pressure 110/64 06/08/2022 3:19 PM EMBLEM FUSER TENDER Pulse 77 06/08/2022 3:19 PM EMBLEM FUSER TENDER Temperature 36.4 C (97.5 F) 02/08/2022 3:10 PM CDT Respiratory Rate 20 02/08/2022 3:10 PM CDT Oxygen Saturation 95% 06/08/2022 3:19 PM EMBLEM FUSER TENDER Inhaled Oxygen Concentration - - Weight 68.5 kg (151 lb) 06/08/2022 3:19 PM EMBLEM FUSER TENDER Height 185.4 cm (6' 1 ) 06/08/2022 3:19 PM EMBLEM FUSER TENDER Body Mass Index 19.92 06/08/2022 3:19 PM EMBLEM FUSER TENDER Plan of Treatment Health Maintenance Due Date Last Done Comments HEPATITIS B VACCINE (3 of 3 - 3-dose series) 04/02/1998 1997, 1997 HIV SCREENING 2012 HPV VACCINE (1 - Male 3-dose series) 2012 HEPATITIS C SCREENING 09/27/2015 PNEUMOCOCCAL VACCINE (1 of 2 - PCV) 2016 COVID-19 VACCINE (2 - season) 2024 09/07/2020 INFLUENZA VACCINE (#1) 2024 03/18/2021, 2007 DEPRESSION SCREENING 06/12/2024 06/08/2022, 02/08/2022, 01/06/2022 DTAP/TDAP/TD VACCINES (7 - Td or Tdap) 04/17/2030 04/17/2020, 10/13/2008, 08/30/2002, Additional history exists ZOSTER VACCINE (1 of 2) 10/02/2047 HIB VACCINE Aged Out 04/07/1998, 01/11, 1997 No longer eligible based on patient's age to complete this topic MENINGOCOCCAL GROUPS A/C/Y/W VACCINE Aged Out 10/13/2008 No longer eligible based on patient's age to complete this topic MENINGOCOCCAL (Group B) VACCINE SHARED DECISION-MAKING Aged Out No longer eligible based on patient's age to complete this topic Care Teams Fermenter Wine Relationship Specialty Start Date End Date Irwin Campos MD PCP - General Family Medicine 01/28/21
--- OUTSIDE RECORDS SUMMARY | 2024-09-11 11:52 | XMS_ITS | Encounter Summary ---
Author Organization [employer] Care Team Providers Care Belt Glass Sander Name Role Phone Mendoza Izquierdo APRN, CNP Primary Care Pr ovider Encounter Details Date Type Department Care Team (Latest Contact Info) Description 09/10/2024 Travel Social History Tobacco Use Types Packs/Day Years Used Date Smoking Tobacco: Never Smokeless Tobacco: Never Alcohol Use Standard Drinks/Week Comments Not Currently 100 (1 standard drink = 0.6 oz p ure alcohol) Currrently in recovery [facility] Utilities Answer Date Recorded In the past 12 months has [employer] electric, gas, oil, or water company threatened [...] declined 05/01/2024 How often do you attend scientologist or confucianist serv ices? Patient declined 05/01/2024 Do you belong to any clubs o r organizations such as scientologist groups, unions, fraternal or athletic groups, or [...] Total Score - Questions 1-9 0 04/13 [facility] - Occupational Stress [...] any time in the past 12 m [facility], were you homeless or living in a custodial (including now)? Patient declined 05/01/2024 Sexually Active [...] 09/12/2024 11:15 AM CDT Outpatient Clinic Visit [facility] [address] [place] [address] Yessi Carrillo LCPC [address] [place] [address] Discharge Disposition: Discharged to home or Selfcare 09/26/2024 8:30 AM CDT Outpatient Clinic Visit [facility] [address] [place] [address] Yessi Carrillo LCPC 1 [place] [address] 05/01/2025 3:15 PM ICT SALES ASSISTANT Office Visit [facility] - Family Medicine - [place] [address] [place] [id number] Mendoza Izquierdo APRN, MAINTENANCE AND OPERATIONS SUPERVISOR #[address] [address] documented as of this encounter Goals Goal Patient Goal Type Associated Problems Recent Progress Patient-Stated? Author I want to learn to not be codependent . Behavioral Health Improving( 9:42 AM CDT) Yes Fouzia Jamil LCPC Note: Goal/Objective: Increase ability to set boundaries and cope with mental health symptoms. Anticipated Time Frame for Goal Completion: 6 months Goal Reviewed with: patient Readiness to change: Thinking about making a change Department associated with goal: [facility] Steps to achieve [...] Depression Total Score: 0 05/02/20 3:03 PM ICT SALES ASSISTANT documented as of this encounter Care Teams Belt Glass Sander Relationship Specialty Start Date End Date Mendoza Izquierdo, YOLY, TE [address] [place] [address] PCP - General Advanced Practice Nurse 05/02/24 documented as of this encounter
[2024-09-11 12:08] LABS: Influenza A QL RT-PCR Negative (Negative); Influenza B QL RT-PCR Negative (Negative); RSV RNA, RT-PCR Negative (Negative); SARS-CoV-2 RNA PCR Negative (Negative)
[2024-09-11 13:21] LABS: Reflex Lactic Acid Yes or No Add Lactic
== END 2024-09-11 14:41 | disposition home or self-care (01) ==
PROVIDERS: Emergency Provider Emergency Medicine
DX: R11.2 Nausea with vomiting, unspecified (principal); Z20.822 Contact with and (suspected) exposure to COVID-19
CPT/HCPCS: 36415; 80053; 83605; 83690; 85025; 87637; 93005; 96361; 96374; 96375; 99284; J2060; J2405; J7030

== ENCOUNTER 2024-10-08 20:44 | Emergency (ER) | payer BC, OTHER, SELFPAY ==
--- NOTE | ~2024-10-08 | XR_ITS ---
EXAM: XR ankle RT min 3V, XR foot RT min 3V DATE: 10/08/2024 21:10 (accession [id number]), 10/08/2024 21:09 (accession [id number]) HISTORY: crush injury . COMPARISON: None available. FINDINGS: Normal mineralization. Transverse fracture of the proximal fifth metatarsal, with 2 mm dis traction laterally, and extension of the fracture line to the intermetatarsal joint. Subtle transvers e lucency in the navicular. No other fracture detected No lytic or blastic lesion. Joint spaces are m aintained. No erosion or periosteal change. Soft tissue swelling over the fracture site. IMPRESSION: Transverse minimally distracted fracture of the proximal right fifth metatarsal (Reyez ty pe fracture). Subtle transverse lucency within the navicular, may represent artifact or nondisplaced fracture. Consider CT of the foot for further evaluation. Reviewed, dictated and finalized at location K. IMPRESSION: Transverse minimally distracted fracture of the proximal right fift h metatarsal (Reyez type fracture). Subtle transverse lucency within the navicu lar, may represent artifact or nondisplaced fracture. Consider CT of the foot f or further evaluation.
--- OUTSIDE RECORDS SUMMARY | 2024-10-08 20:47 | XMS_ITS | Clinical Summary ---
Author Organization [facility] Address [address] [place] [address] Phone Care Team Providers Care Account Associate Name Role Phone Mendoza Izquierdo APRN, PRINTING MACHINIST Primary Care Pr ovider Allergies Active Allergy [...] Encounters Date Type Department Care Team Description 09/26/2024 8:30 AM CDT Outpatient [facility] 1 [place] [address] Yessi Carrillo LCPC CINTHYA (generalized anxiety disorder) (Primary Dx) Discharge Disposition: Discharged to home or Selfcare 09/25/2024 Travel 09/12/2024 Travel 09/10/2024 Travel 08/29/2024 8:30 AM CDT Outpatient [facility] [address] [place] [address] Yessi Carrillo, DESIGN CHIEF Alcohol use disorder, moderate, in early remission (HCC) (Primary Dx); CINTHYA (generalized anxiety disorder) Discharge Disposition: Discharged to home or Selfcare 08/27/2024 Travel 08/08/2024 10:45 AM CLASSIFICATION OFFICER Outpatient Clinic [facility] 1 [facility] [place] [address] Yessi Carrillo, DESIGN CHIEF Alcohol use disorder, moderate, in early remission (HCC) (Primary Dx); CINTHYA (generalized anxiety disorder) Discharge Disposition: Discharged to home or Selfcare 08/08/2024 Travel 08/05/2024 Travel 07/25/2024 11:00 AM CLASSIFICATION OFFICER Outpatient Clinic [facility] 1 [facility] [place] [address] Yessi Carrillo, DESIGN CHIEF Alcohol use disorder, moderate, dependence (HCC) (Primary Dx); CINTHYA (generalized anxiety disorder) Discharge Disposition: Discharged to home or Selfcare 07/23/2024 Travel 07/15/2024 Travel 07/11/2024 10:00 AM CLASSIFICATION OFFICER Outpatient Clinic [facility] [address] [place] [address] Fouzia Jamil, DESIGN CHIEF Alcohol use disorder, moderate, dependence (HCC) (Primary Dx); CINTHYA (generalized anxiety disorder) Discharge Disposition: Discharged to home or Selfcare 07/10/2024 Travel from Last 3 Months Immunizations Immunization Administration Dates Next Due Covid-19, Mrna, Lnp-s, Pf, 3 0 Mcg/0.3 Ml Dose (DigiMeld) 09/07/2020 DTAP VACCINE 08/30/2002, 8,02/04/1998,11/20 Hepatitis A Vaccine, Pediatric/adolescent, 2 Dose Schedule [...] Paternal Uncle Relation Name Status Comments Father Pnocho Alive Maternal Grandfather Alive Maternal Grandmother Alive Mother Padmaja Alive Paternal Grandfather Paternal Grandmother Paternal Uncle Social History Tobacco Use Types Packs/Day Years Used Date Smoking Tobacco: Never Smokeless Tobacco: Never Tobacco Cessation:Counseling Given: No Alcohol Use Standard Drinks/Week Comments Not Currently 100 (1 standard drink = 0.6 oz p ure alcohol) Currrently in recovery [facility] Utilities Answer Date Recorded In the past 12 months has e electric, gas, oil, or water [employer] threatened to shut off services in your home? No 05/01/2024 Social Connection and Isolation Panel [NHANES] A nswer Date Recorded In a typical week, how many times do you talk on the phone with family, friends, or neighbors? Patient declined 05/01/2024 How often do you get togethe r with friends or relatives? Patient declined 05/01/2024 How often do you attend christian or presybeterian serv ices? Patient declined 05/01/2024 Do you belong to any clubs o r organizations such as christian groups, unions, fraternal or athletic groups, or [...] Total Score - Questions 1-9 0 04/13 [facility] ional Health - [...] any time in the past 12 m [facility], were you homeless or living in a detention (including now)? Patient declined 05/01/2024 Sexually Active Control Partners Comments Not Currently Sex and Gender Information Value Date Recorded Sex Assigned at Not on file Legal Sex Male 2:35 PM CDT Gender Identity Not on file Sexual Orientation Not on file Last Filed Vital Signs Vital Sign Reading Time Taken Comments Blood Pressure 142/76 05/02/2024 3:14 PM CLASSIFICATION OFFICER Pulse 100 05/02/2024 3:14 PM CLASSIFICATION OFFICER Temperature 36.9 C (98.5 F) 05/02/2024 3:14 PM CLASSIFICATION OFFICER Respiratory Rate 16 05/02/2024 3:14 PM CLASSIFICATION OFFICER Oxygen Saturation 97% 05/02/2024 3:14 PM CLASSIFICATION OFFICER Inhaled Oxygen Concentration - - Weight 72 kg (158 lb 12.8 oz) 05/02/2024 3:14 PM CLASSIFICATION OFFICER Height 182.9 cm (6') 05/02/2024 3:14 PM CLASSIFICATION OFFICER Body Mass Index 21.54 05/02/2024 3:14 PM CLASSIFICATION OFFICER Plan of Treatment Upcoming Encounters Date Type Department Care Team (Latest Contact Info) Description 10/10/2024 9:15 AM CDT Outpatient Clinic Visit [facility] 1 [place] [address] Yessi Carrillo DESIGN CHIEF 1 [place] [address] Discharge Disposition: Discharged to home or Selfcare 10/17/2024 10:45 AM CDT Office Visit [facility] [address]2 [place] [address] Mendoza Izquierdo APRN, PRINTING MACHINIST #[address] [address] 05/01/2025 3:15 PM CLASSIFICATION OFFICER Office Visit [facility] [address] [place] [address] Mendoza Izquierdo APRN, PRINTING MACHINIST #[address] [address] Health Maintenance Due Date Last Done Comments Hepatitis C Virus (HCV) Screening 1997 Hepatitis B Immunization (3 of 3 - 3-dose series) 04/02/1998 1997, 1997 SARS-COV-2 Immunization ( season) 2024 09/07/2020 Influenza Immunization (Season Ended) [...] to not be codependent . Behavioral Health On track( 025 9:11 AM CDT) Yes Fouzia Jamil, [facility] Note: Goal/Objective: Increase ability to set boundaries and cope with mental health symptoms. Anticipated Time Frame for Goal Completion: 6 months Goal Reviewed with: patient Readiness to change: Thinking about making a change Department associated with goal: [facility] Steps to achieve goal: [...] 1x/month at least 6 sessions Insurance MEDICAID [place] Care Teams Account Associate Relationship Specialty Start Date End Date Mendoza Izquierdo APRN, PRINTING MACHINIST [address] [place] [phone] PCP - General Advanced Practice Nurse 05/02/24
--- OUTSIDE RECORDS SUMMARY | 2024-10-08 20:47 | XMS_ITS | Clinical Summary ---
Author Organization [facility] Address [address] [facility] [place] [address] Care Team Providers Care Industrial Hygiene Engineer Name Role Phone Irwin Campos MD Primary Care Provider [phone] Source Comments [facility],non-owned Affiliates and Associated Physician Practices is amultiple site organization consisting of ambulatory clinics and hospital sitesin [place], [place], [place] and [place]. This disclosure is being madepursuant to the Care Everywhere program and may not contain all information available regarding this patient. Last updated 18.[facility] Allergies Active Allergy Reactions Criticality Noted Date Comments Penicillins Anaphylaxis,Swelling High 05/04/2020 Medications * Be aware that medications may not be up to date on this document. Alwaysverify current medications with the patient. mirtazapine (REMERON) 30 MG tabletIndicatio ns:Depression with anxiety Take 1 (one) tablet by [...] 05/05/2021 Active hydrOXYzine HCl (Atarax) 25 MG tabletIndicatio ns:Bipolar disorder, current episode mixed, moderate (HCC) TAKE 1 TABLET BY MOUTH FOUR TIMES A DAY NEEDED FOR ITCHING 30 tablet 09/28/2022 Active lithium CR (Lithobid) 300 MG tabletIndicatio ns:Bipolar disorder, current episode mixed, moderate (HCC) TAKE 1 TABLET BY MOUTH EVERY 12 HOURS 60 tablet 1 11/11/2022 Active traZODone (Desyrel) 50 MG tabletIndicatio ns:Bipolar disorder, current episode mixed, moderate (HCC) TAKE 1-2 TABLETS BY MOUTH ONCE NIGHTLY NEEDED FOR INSOMNIA 60 tablet 1 12/02/2022 Active buPROPion XL 24hr (Wellbutrin-XL) 150 MG tabletIndicatio ns:Bipolar disorder, current episode mixed, moderate (HCC) TAKE 1 TABLET BY MOUTH EVERY DAY IN THE MORNING 30 tablet 02/22/2023 Active Active Problems Problem Noted Date Diagnosed Date Depression with anxiety 01/28/2021 Alcoholism 01/28/2021 Immunizations Immunization Administration Dates Next Due [employer] Data primary monoval ent 12+ yr 0.3mL Purple cap 09/07/2020 DTaP VACCINE IM (6wk-6yrs) 08/30/2002,,02/04/1998,11/20 HEP A PEDS 2 DOSE 10/13/2008,04/14/2008 HEP B VACCINE, PED/ADOL 1997,1997 HIB VACCINE 04/07/1998,02/04/1998,1997 INFLUENZA VACCINE 04/14/2008 INFLUENZA VACCINE, QUADR. (F LUZONE; FLULAVAL; FLUARIX; AFLURIA QUADRIVALENT; 6MO+), 0.5 ML (IIV4) 03/18/2021 MENINGOCOCCAL ACWY (MCV4P) VAC IM 10/13/2008 MMR 08/30/2002,12/31/1998 POLIO IPV 09/02/2002, 9,02/04/1998,11/20 [...] Assigned at Male 01/27/2021 5:10 PM CDT Legal Sex Male 5:39 AM PLUG MACHINE OPERATOR Gender Identity Male 01/27/2021 5:10 PM CDT Sexual Orientation Not on file Last Filed Vital Signs Vital Sign Reading Time Taken Comments Blood Pressure 110/64 06/08/2022 3:19 PM PLUG MACHINE OPERATOR Pulse 77 06/08/2022 3:19 PM PLUG MACHINE OPERATOR Temperature 36.4 C (97.5 F) 02/08/2022 3:10 PM CDT Respiratory Rate 20 02/08/2022 3:10 PM CDT Oxygen Saturation 95% 06/08/2022 3:19 PM PLUG MACHINE OPERATOR Inhaled Oxygen Concentration - - Weight 68.5 kg (151 lb) 06/08/2022 3:19 PM PLUG MACHINE OPERATOR Height 185.4 cm (6' 1 ) 06/08/2022 3:19 PM PLUG MACHINE OPERATOR Body Mass Index 19.92 06/08/2022 3:19 PM PLUG MACHINE OPERATOR Plan of Treatment Health Maintenance Due Date Last Done Comments HEPATITIS B VACCINE (3 of 3 - 3-dose series) 04/02/1998 1997, 1997 HIV SCREENING 2012 HEPATITIS C SCREENING 09/27/2015 PNEUMOCOCCAL VACCINE (1 of 2 - PCV) 2016 COVID-19 VACCINE (2 - season) 2024 09/07/2020 DEPRESSION SCREENING 06/12/2024 06/08/2022, 02/08/2022, 01/06/2022 INFLUENZA VACCINE (Season Ended) 2025 03/18/2021, 04/14/2008 DTAP/TDAP/TD VACCINES (7 - Td or Tdap) 04/17/2030 04/17/2020, 10/13/2008, 08/30/2002, Additional history exists ZOSTER VACCINE (1 of 2) 10/02/2047 HIB VACCINE Aged Out 04/07/1998, 01/11, 1997 No longer eligible based on patient's age to complete this topic MENINGOCOCCAL GROUPS A/C/Y/W VACCINE Aged Out 10/13/2008 No longer eligible based on patient's age to complete this topic HPV VACCINE Aged Out No longer eligi ble based on patient's age to complete this topic MENINGOCOCCAL (Group B) VACCINE SHARED DECISION-MAKING Aged Out No longer eligible based on patient's age to complete this topic Care Teams Industrial Hygiene Engineer Relationship Specialty Start Date End Date Irwin Campos MD PCP - General Family Medicine 01/28/21
--- OUTSIDE RECORDS SUMMARY | 2024-10-08 20:47 | XMS_ITS | Encounter Summary ---
Author Organization [facility] Address [address] [place] [address] Phone Care Team Providers Care Hydrometer Calibrator Name Role Phone Mendoza Izquierdo APRN, CNP Primary Care Pr ovider Encounter Details Date Type Department Care Team (Late st Contact Info) Description 07/02/2024 Telephone [facility] 1 [place] [phone] Fouzia Jamil, [facility] 1 [place] [address] Social History Tobacco Use Types Packs/Day Years Used Date Smoking Tobacco: Never Smokeless Tobacco: Never Alcohol Use Standard Drinks/Week Comments Not Currently 100 (1 standard drink = 0.6 oz p ure alcohol) Currrently in recovery [facility] Utilities Answer Date Recorded In the past 12 months has [employer], gas, oil, or water [employer] threatened to shut off services in your home? No 05/01/2024 Social Connection and Isolation Panel [NHANES] A nswer Date Recorded In a typical week, how many times do you talk on the phone with family, friends, or neighbors? Patient declined 05/01/2024 How often do you get togethe r with friends or relatives? Patient declined 05/01/2024 How often do you attend worship or temple serv ices? Patient declined 05/01/2024 Do you belong to any clubs o r organizations such as worship groups, unions, fraternal or athletic groups, or [...] Total Score - Questions 1-9 0 04/13 [facility]at [facility] - Occupational Stress Questionnaire Answer Date Recorded [...] any time in the past 12 m [facility], were you homeless or living in a half-way (including now)? Patient declined 05/01/2024 Sexually Active [...] 10/10/2024 9:15 AM CDT [facility] 1 [place] [address] Yessi Carrillo, [facility] 1 [place] [address] Discharge Disposition: Discharged to home or Selfcare 10/17/2024 10:45 AM CDT Office Visit [facility] [address] [place] [address] Mendoza Izquierdo APRN, FISHER D[employer] NET [address] [address] 05/01/2025 3:15 PM PRACTICE NURSE Office Visit [facility] [address] [place] [address] Mendoza Izquierdo APRN, [employer] [address] [address] documented as of this encounter Goals Goal Patient Goal Type Associated Problems Recent Progress Patient-Stated? Author I want to learn to not be codependent . Behavioral Health On track( 025 9:11 AM CDT) Yes Fouzia Jamil, [employer] Note: Goal/Objective: Increase ability to set boundaries and cope with mental health symptoms. Anticipated Time Frame for Goal Completion: 6 months Goal Reviewed with: patient Readiness to change: Thinking about making a change Department associated with goal: [facility] Steps to achieve goal: [...] Time PHQ-9 Depression Total Score: 0 05/02/20 24 3:03 PM PRACTICE NURSE documented as of this encounter Care Teams Hydrometer Calibrator Relationship Specialty Start Date End Date Mendoza Izquierdo, BUNG REMOVER, [employer] [address] [place] [address] PCP - General Advanced Practice Nurse 05/02/24 documented as of this encounter
[2024-10-08 20:50] VITALS: BP 121/82; PULSE 109; RESP 16; TEMP 37.2; O2SAT 97
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
--- OUTSIDE RECORDS SUMMARY | 2024-10-08 21:32 | XMS_ITS | Clinical Summary ---
Author Organization [facility] Address [address] [place] [address] Phone Care Team Providers Care Marina Porter Name Role Phone Mendoza Izquierdo APRN, SOCIAL SCIENCE INSTRUCTOR Primary Care Pr ovider Allergies Active Allergy [...] AM CDT Out[facility] 1 [place] [address] Yessi Carrillo LCPC CINTHYA (generalized anxiety disorder) (Primary Dx) Discharge Disposition: Discharged to home or Selfcare 09/25/2024 Travel 09/12/2024 Travel 09/10/2024 Travel 08/29/2024 8:30 AM CDT Outpatient [facility] [address] [place] [address] Yessi Carrillo, LEAD GENERATION MARKETING MANAGER Alcohol use disorder, moderate, in early remission (HCC) (Primary Dx); CINTHYA (generalized anxiety disorder) Discharge Disposition: Discharged to home or Selfcare 08/27/2024 Travel 08/08/2024 10:45 AM BASE BRANDER Outpatient [facility] 1 [facility] [place] [address] Yessi Carrillo, LEAD GENERATION MARKETING MANAGER Alcohol use disorder, moderate, in early remission (HCC) (Primary Dx); CINTHYA (generalized anxiety disorder) Discharge Disposition: Discharged to home or Selfcare 08/08/2024 Travel 08/05/2024 Travel 07/25/2024 11:00 AM BASE BRANDER Outpatient [facility] 1 [facility] [place] [address] Yessi Carrillo, LEAD GENERATION MARKETING MANAGER Alcohol use disorder, moderate, dependence (HCC) (Primary Dx); CINTHYA (generalized anxiety disorder) Discharge Disposition: Discharged to home or Selfcare 07/23/2024 Travel 07/15/2024 Travel 07/11/2024 10:00 AM BASE BRANDER Outpatient [facility] [address] [place] [address] Fouzia Jamil, LEAD GENERATION MARKETING MANAGER Alcohol use disorder, moderate, dependence (HCC) (Primary Dx); CINTHYA (generalized anxiety disorder) Discharge Disposition: Discharged to home or Selfcare 07/10/2024 Travel from Last 3 Months Immunizations Immunization Administration Dates Next Due Covid-19, Mrna, Lnp-s, Pf, 3 0 Mcg/0.3 Ml Dose ([employer]) 09/07/2020 DTAP VACCINE 08/30/2002, 8,02/04/1998,11/20 Hepatitis A [...] oz p ure alcohol) Currrently in recovery [facility] Utilities Answer Date Recorded In the past 12 months has e electric, gas, oil, or water [employer] threatened to shut off services in your home? No 05/01/2024 Social Connection and Isolation Panel [NHANES] A nswer Date Recorded In a typical week, how many times do you talk on the phone with family, friends, or neighbors? Patient declined 05/01/2024 How often do you get togethe r with friends or relatives? Patient declined 05/01/2024 How often do you attend muslim or shinto serv ices? Patient declined 05/01/2024 Do you belong to any clubs o r organizations such as muslim groups, unions, fraternal or athletic groups, or [...] 04/13 [facility] - [...] any time in the past 12 m [facility], were you homeless or living in a intermediate (including now)? Patient declined 05/01/2024 Sexually Active Control Partners Comments Not Currently Sex and Gender Information Value Date Recorded Sex Assigned at Not on file Legal Sex Male 2:35 PM CDT Gender Identity Not on file Sexual Orientation Not on file Last Filed Vital Signs Vital Sign Reading Time Taken Comments Blood Pressure 142/76 05/02/2024 3:14 PM BASE BRANDER Pulse 100 05/02/2024 3:14 PM BASE BRANDER Temperature 36.9 C (98.5 F) 05/02/2024 3:14 PM BASE BRANDER Respiratory Rate 16 05/02/2024 3:14 PM BASE BRANDER Oxygen Saturation 97% 05/02/2024 3:14 PM BASE BRANDER Inhaled Oxygen Concentration - - Weight 72 kg (158 lb 12.8 oz) 05/02/2024 3:14 PM BASE BRANDER Height 182.9 cm (6') 05/02/2024 3:14 PM BASE BRANDER Body Mass Index 21.54 05/02/2024 3:14 PM BASE BRANDER Plan of Treatment Upcoming Encounters Date Type Department Care Team (Latest Contact Info) Description 10/10/2024 9:15 AM CDT Outpatient Clinic Visit [facility] 1 [place] [address] Yessi Carrillo LEAD GENERATION MARKETING MANAGER 1 [place] [address] Discharge Disposition: Discharged to home or Selfcare 10/17/2024 10:45 AM CDT Office Visit [facility] [address] [place] [address] Mendoza Izquierdo APRN, SOCIAL SCIENCE INSTRUCTOR [address] [address] 05/01/2025 3:15 PM BASE BRANDER Office Visit [facility] [address] [place] [address] Mendoza Izquierdo APRN, SOCIAL SCIENCE INSTRUCTOR #[address] [address] Health Maintenance Due Date Last Done Comments [...] 025 9:11 AM CDT) Yes Fouzia Jamil, [facility] Note: Goal/Objective: Increase ability to set boundaries and cope with mental health symptoms. Anticipated Time Frame for Goal Completion: 6 months Goal Reviewed with: patient Readiness to change: Thinking about making a change Department associated with goal: [facility] Steps to achieve [...] 1x/month at least 6 sessions Insurance MEDICAID [place] Care Teams Marina Porter Relationship Specialty Start Date End Date Mendoza Izquierdo APRN, SOCIAL SCIENCE INSTRUCTOR [address] [place] [phone] PCP - General Advanced Practice Nurse 05/02/24
--- OUTSIDE RECORDS SUMMARY | 2024-10-08 21:32 | XMS_ITS | Clinical Summary ---
Author Organization [facility] Address [address] [facility] [address] [place] [address] Care Team Providers Care Recording Clerk Name Role Phone Irwin Campos MD Primary Care Provider [phone] Source Comments [facility],non-owned Affiliates and Associated Physician Practices is amultiple site organization consisting of ambulatory clinics and hospital sitesin [place], [place], [place] and [place]. This disclosure is being madepursuant to the Care Everywhere program and may not contain all information available regarding this patient. Last updated 18.[facility] Allergies Active Allergy Reactions Criticality Noted Date [...] 01/28/2021 Immunizations Immunization Administration Dates Next Due [email or web address] primary monoval ent 12+ yr 0.3mL Purple [...] PM CDT Legal Sex Male 5:39 AM MEDICAL DIRECTOR Gender Identity Male 01/27/2021 5:10 PM CDT Sexual Orientation Not on file Last Filed Vital Signs Vital Sign Reading Time Taken Comments Blood Pressure 110/64 06/08/2022 3:19 PM MEDICAL DIRECTOR Pulse 77 06/08/2022 3:19 PM MEDICAL DIRECTOR Temperature 36.4 C (97.5 F) 02/08/2022 3:10 PM CDT Respiratory Rate 20 02/08/2022 3:10 PM CDT Oxygen Saturation 95% 06/08/2022 3:19 PM MEDICAL DIRECTOR Inhaled Oxygen Concentration - - Weight 68.5 kg (151 lb) 06/08/2022 3:19 PM MEDICAL DIRECTOR Height 185.4 cm (6' 1 ) 06/08/2022 3:19 PM MEDICAL DIRECTOR Body Mass Index 19.92 06/08/2022 3:19 PM MEDICAL DIRECTOR Plan of Treatment Health Maintenance Due Date [...] age to complete this topic Care Teams Recording Clerk Relationship Specialty Start Date End Date Irwin Campos MD PCP - General Family Medicine 01/28/21
--- OUTSIDE RECORDS SUMMARY | 2024-10-08 21:32 | XMS_ITS | Encounter Summary ---
Author Organization [facility] Address [address] [place] [address] Phone Care Team Providers Care Ethnic Origins Teacher Name Role Phone Mendoza Izquierdo APRN, CNP Primary Care Pr ovider Encounter Details Date Type Department Care Team (Late st Contact Info) Description 07/02/2024 Telephone [facility] 1 [place] [id number] Fouzia Jamil, [facility] 1 [place] [address] Social History Tobacco Use Types Packs/Day Years Used Date Smoking Tobacco: Never Smokeless Tobacco: Never Alcohol Use Standard Drinks/Week Comments Not Currently 100 (1 standard drink = 0.6 oz p ure alcohol) Currrently in recovery [facility] Utilities Answer Date Recorded In the past 12 months has [employer], gas, oil, or water [employer] threatened to shut off services in your home? No 05/01/2024 Social Connection and Isolation Panel [NHANES] A nswer Date Recorded In a typical week, how many times do you talk on the phone with family, friends, or neighbors? Patient declined 05/01/2024 How often do you get togethe r with friends or relatives? Patient declined 05/01/2024 How often do you attend caodaism or hinduism serv ices? Patient declined 05/01/2024 Do you belong to any clubs o r organizations such as caodaism groups, unions, fraternal or athletic groups, or [...] Total Score - Questions 1-9 0 04/13 [facility] ional [facility] - Occupational Stress Questionnaire Answer Date [...] any time in the past 12 m [facility], were you homeless or living in a skilled nursing (including now)? Patient declined 05/01/2024 Sexually Active [...] 10/10/2024 9:15 AM CDT [facility] 1 [place] [address] Yessi Carrillo, [facility] 1 [place] [address] Discharge Disposition: Discharged to home or Selfcare 10/17/2024 10:45 AM CDT Office [facility] [place] [address] Mendoza Izquierdo APRN, ACCOUNT REPRESENTATIVE #[address] [address] 05/01/2025 3:15 PM MACHINE OPERATOR PICKER Office [facility] [place] [address] Mendoza Izquierdo APRN, ACCOUNT REPRESENTATIVE #[address] [address] documented as of this encounter Goals Goal Patient Goal Type Associated Problems Recent Progress Patient-Stated? Author I want to learn to not be codependent . Behavioral Health On track( 025 9:11 AM CDT) Yes Fouzia Jamil, CONSTRUCTION FLAGGER Note: Goal/Objective: Increase ability to set boundaries and cope with mental health symptoms. Anticipated Time Frame for Goal Completion: 6 months Goal Reviewed with: patient Readiness to change: Thinking about making a change Department associated with goal: [facility] Steps to [...] Total Score: 0 05/02/20 24 3:03 PM MACHINE OPERATOR PICKER documented as of this encounter Care Teams Ethnic Origins Teacher Relationship Specialty Start Date End Date Mendoza Izquierdo, CREDIT UNION EXAMINER, ACCOUNT REPRESENTATIVE [address] [place] [address] PCP - General Advanced Practice Nurse 05/02/24 documented as of this encounter
[2024-10-08] MEDS: oxyCODONE HCL (*CRX) 5 MG TAB IR PO (21:52)
== END 2024-10-08 22:22 | disposition home or self-care (01) ==
PROVIDERS: Emergency Provider Student in an Organized Health Care Education/Training Program
DX: S92.351A Displaced fracture of fifth metatarsal bone, right foot, initial encounter for closed fracture (principal); W20.8XXA Other cause of strike by thrown, projected or falling object, initial encounter
CPT/HCPCS: 29515; 73610; 73630; 99284; A9270

== ENCOUNTER 2025-03-27 06:45 | Emergency (ER) | payer OTHER, SELFPAY ==
[2025-03-27] VITALS (10 sets, daily range): BP systolic 127–140; BP diastolic 88–95; PULSE 79–96; RESP 15–21; TEMP 36.7; O2SAT 97–100
--- OUTSIDE RECORDS SUMMARY | 2025-03-27 07:40 | XMS_ITS | Clinical Summary ---
Author Organization [facility] Address [address] [place] [address] Care Team Providers Care Building Cleaning Supervisor Name Role Phone Juan Diego Cunningham DO Primary Care Provider + Source Comments [facility],non-owned Affiliates and Associated Physician Practices is amultiple site organization consisting of ambulatory clinics and hospital sitesin [place], [place], [place] and [place]. This disclosure is being madepursuant to the Care Everywhere program and may not contain all information available regarding this patient. Last updated 18.[facility] Allergies Active Allergy Reactions Criticality Noted Date [...] 01/28/2021 Immunizations Immunization Administration Dates Next Due [employer] primary monoval ent 12+ yr 0.3mL Purple [...] = 0.6 oz pur e alcohol) sober for 2 weeks PHQ-2 Answer Date Recorded PHQ2 TOTAL SCORE 6 06/08/2022 Sex and Gender Information Value Date Recorded Sex Assigned at Male 01/27/2021 5:10 PM CDT Legal Sex Male 5:39 AM OPERATIONS AND MAINTENANCE TECHNICIAN Gender Identity Male 01/27/2021 5:10 PM CDT Sexual Orientation Not on file Last Filed Vital Signs Vital Sign Reading Time Taken Comments Blood Pressure 134/105 10/16/2024 8:16 PM CDT Pulse 86 10/16/2024 8:16 PM CDT Temperature 37.1 C (98.8 F) 10/16/2024 8:16 PM CDT Respiratory Rate 20 10/16/2024 8:16 PM CDT Oxygen Saturation 99% 10/16/2024 8:16 PM CDT Inhaled Oxygen Concentration - - Weight 72.6 kg (160 lb) 10/16/2024 8:16 PM CDT Height 180 cm (5' 10.87) 10/16/2024 8:16 PM CDT Body Mass Index 22.4 10/16/2024 8:16 PM CDT Plan of Treatment Health Maintenance Due Date Last Done Comments HEPATITIS B VACCINE (3 of 3 - 3-dose series) 04/02/1998 1997, 1997 HIV SCREENING 2012 HEPATITIS C SCREENING 09/27/2015 PNEUMOCOCCAL VACCINE (1 of 2 - PCV) 2016 DEPRESSION SCREENING 06/12/2024 06/08/2022, 02/08/2022, 01/06/2022 HPV VACCINE (1 - 3-dose SCDM series) 2024 COVID-19 VACCINE (2 - season) 2025 09/07/2020 INFLUENZA VACCINE (#1) 2025 03/18/2021, 2007 DTAP/TDAP/TD VACCINES (7 - Td or Tdap) [...] on patient's age to complete this topic Insurance [facility] Care Teams Building Cleaning Supervisor Relationship Specialty Start Date End Date Juan Diego Cunningham DO [address] [place] [id number] PCP - General Family Medicine Geriatric Medicine 10/16/24
--- OUTSIDE RECORDS SUMMARY | 2025-03-27 07:40 | XMS_ITS | Clinical Summary ---
Author Organization [facility] Address [address] [place] [address] Phone Care Team Providers Care Director Part Name Role Phone Mendoza Izquiedro APRN, CNP Primary Care Pr ovider Allergies Active Allergy [...] for Nausea - 1st line. 15 Tablet 5 Active Additional Information Patient not taking.Reported on 10/17/2024 famotidine (PEPCID) 40 MG TabletIndicatio ns:Gastroesopha geal reflux disease, unspecified whether esophagitis present Take 1 Tablet by mouth 2 times daily. 60 Tablet 2 5 Active Mirtazapine (REMERON) 7.5 MG Tablet TAKE 1 TABLET EVERYDAY AT BEDTIME NEEDED FOR INSOMNIA 5 Active ondansetron (ZOFRAN) 4 MG Tablet Take 4 mg by mouth every 8 hours. 5 Active omeprazole (PriLOSEC) 20 MG CAPSULE DELAYED RELEASEIndicati ons:Gastroesoph ageal reflux disease, unspecified whether esophagitis present Take 1 Capsule by mouth daily. 30 Capsule 1 5 025 Discontin ued(Med List Clean Up) traZODone (DESYREL) 50 MG Tablet Take 1 Tablet by mouth nightly as needed for Sleep. 30 Tablet 1 5 025 Discontin ued(Med List Clean Up) Active Problems Problem Noted Date Diagnosed Date Alcohol use disorder, moderate, dependence 07/25 CINTHYA (generalized anxiety disorder) 06/18/2024 Alcohol use disorder, moderate, in early remissi on 04/09/2024 Encounters Date Type Department Care Team Description 03/18/2025 1:45 PM CDT Office Visit [facility] [address] [place] [address] Mendoza Izquierdo, PET STYLIST, SERVICE DESK TECHNICIAN Gastroesophageal reflux disease without esophagitis (Primary Dx) Discharge Disposition: Discharged to home or Selfcare 03/18/2025 11:15 AM CDT Outpatient Clinic Visit [facility] 1 [place] [address] Yessi Carrillo LCPC CINTHYA (generalized anxiety disorder) (Primary Dx) Discharge Disposition: Discharged to home or Selfcare 03/17/2025 Travel 03/04/2025 10:30 AM CDT Outpatient Clinic Visit [facility] [address] [place] [address] Yessi Carrillo LCPC CINTHYA (generalized anxiety disorder) (Primary Dx) Discharge Disposition: Discharged to home or Selfcare 03/04/2025 Travel 01/28/2025 3:45 PM CDT Outpatient Clinic Visit [facility] [address] [place] [address] Yessi Carrillo LCPC CINTHYA (generalized anxiety disorder) (Primary Dx) Discharge Disposition: Discharged to home or Selfcare 01/28/2025 Travel 12/26/2024 Refill [facility] [address] [place] [address] Mendoza Izquierdo, PET STYLIST, SERVICE DESK TECHNICIAN Medication Refill from Last 3 Months Immunizations Immunization Administration Dates Next Due Covid-19, Mrna, Lnp-s, Pf, 3 0 Mcg/0.3 Ml Dose ([employer]) 09/07/2020 DTAP VACCINE 08/30/2002, 8,02/04/1998,11/20 Hepatitis A [...] oz p ure alcohol) Currrently in recovery [facility] Utilities Answer Date Recorded In the past 12 months has e [employer], gas, oil, or water [employer] threatened to shut off services in your home? No 10/16/2024 Social Connection and Isolation Panel Answer Date Recorded In a typical week, how many times do you talk on the phone with family, friends, or neighbors? Patient declined 10/16/2024 How often do you get togethe r with friends or relatives? Patient declined 10/16/2024 How often do you attend pentecostalism or yazidism serv ices? Never 10/16/2024 Do you belong to any clubs o r organizations such as pentecostalism groups, unions, fraternal or athletic groups, or school groups? No 10/16/2024 How often do you attend meet ings of the clubs or organizations you belong to? Patient declined 10/16/2024 Are you , , di vorced, , never , or living with a partner? Never 10/16/2024 AUDIT-C Answer Date Recorded Q1: How often do you have a drink containing alc ohol? 2-3 times a week 10/16/2024 Q2: How many drinks containi ng alcohol do you have on a typical day when you are drinking? Patient declined 10/16/2024 Q3: How often do you have si x or more drinks on one occasion? Patient declined 10/16/2024 Overall Financial Resource Strain (CARDIA) Answe r Date Recorded How hard is it for you to pa y for the very basics like food, housing, medical care, and heating? Not hard at all 10/16/2024 PHQ-2 Answer Date Recorded Total Score - Questions 1-9 0 10/0 12/2024 [facility] - Occupational Stress Questionnaire Answer Date Recorded Do you feel stress - tense, restless, nervous, or anxious, or unable to sleep at night because your mind is troubled all the time - these days? To some extent 10/16/2024 Exercise Vital Sign Answer Date Recorde d On average, how many days pe r week do you engage in moderate to strenuous exercise (like a brisk walk)? Patient declined On average, how many minutes do you engage in exercise at this level? Patient declined 10/16/2024 Hunger Vital Sign Answer Date Recorded Within the past 12 months, y ou worried that your food would run out before you got the money to buy more. Never true 10/17/19 25 Within the past 12 months, t he food you bought just didn't last and you didn't have money to get more. Never true 10/16/2024 PRAPARE - Transportation Answer Date Re corded In the past 12 months, has l ack of transportation kept you from medical appointments or from getting medications? No 12/2024 In the past 12 months, has l ack of transportation kept you from meetings, work, or from getting things needed for daily living? No 10/16/2024 Housing Stability Vital Sign Answer Jason e Recorded In the last 12 months, was t here a time when you were not able to pay the mortgage or rent on time? No 10/16/2024 Number of Times Moved in the Last Year Not on fi le 10/16/2024 At any time in the past 12 m [facility], were you homeless or living in a alf (including now)? No 10/16/2024 Sexually Active Control Partners Comments Not Currently Sex and Gender Information Value Date Recorded Sex Assigned at Not on file Legal Sex Male 2:35 PM CDT Gender Identity Not on file Sexual Orientation Not on file Last Filed Vital Signs Vital Sign Reading Time Taken Comments Blood Pressure 116/74 03/18/2025 1:39 PM CDT Pulse 76 03/18/2025 1:39 PM CDT Temperature 36.4 C (97.6 F) 03/18/2025 1:39 PM CDT Respiratory Rate 12 03/18/2025 1:39 PM CDT Oxygen Saturation 99% 03/18/2025 1:39 PM CDT Inhaled Oxygen Concentration - - Weight 81.1 kg (178 lb 14.4 oz) 03/18/2025 1:39 PM CDT Height 182.9 cm (6') 03/18/2025 1:39 PM CDT Body Mass Index 24.26 03/18/2025 1:39 PM CDT Plan of Treatment Upcoming Encounters Date Type Department Care Team (Latest Contact Info) Description 04/08/2025 11:00 AM CDT Outpatient Clinic Visit [facility] [address] [place] [address] Yessi Carrillo, [facility] 1 [place] [address] Discharge Disposition: Discharged to home or Selfcare Health Maintenance Due Date Last Done Comments Hepatitis C Virus (HCV) Screening 1997 Human Papillomavirus (HPV) Immunization (1 - 3-dose SCDM series) 2024 Influenza Immunization (#1) 2025 03/18/2021, 1 06/14/2007 SARS-COV-2 Immunization (2 - 2024- season) 2025 09/07/2020 DTaP/Tdap/Td Immunization (9 - Td or Tdap) 04/17/2030 04/17/2020, 01/24/2012, 10/13/2008, Additional history exists Respiratory Syncytial Virus (RSV) Immunization (Adult) (1 - 1-dose 75+ series) 2072 Hepatitis B Immunization Completed 999, 1997, 1997 Meningococcal Immunization (ACWY) Aged Out 09/09/2011 No longer eligible based on patient's age to complete this topic TdaP Immunization Discontinued 04/17/2020, , 08/30/2002, Additional history exists Pneumococcal Immunization Combined Discontinued Rotavirus Immunization Aged Out No lo nger eligible based on patient's age to complete this topic Goals Goal Patient Goal Type Associated Problems Recent Progress Patient-Stated? Author I want to learn to not be codependent. Behavioral Health On track( 025 12:11 PM CDT) Yes Fouzia Jamil, [facility] Note: Goal/Objective: Increase ability to set [...] 1x/month at least 6 sessions Insurance MEDICAID [place] Care Teams Director Part Relationship Specialty Start Date End Date Mendoza Izquierdo APRN, SERVICE DESK TECHNICIAN [address] [place] [address] PCP - General Advanced Practice Nurse 05/02/24
--- OUTSIDE RECORDS SUMMARY | 2025-03-27 07:40 | XMS_ITS | Encounter Summary ---
Author Organization [facility] Address [address] [place] [address] Phone Care Team Providers Care Can Handler Name Role Phone Mendoza Izquierdo APRN, DISH WASHER Primary Care Pr ovider Encounter Details Date Type Department Care Team (Late st Contact Info) Description 07/02/2024 Telephone [facility] [address] [place] [phone] Fouzia Jamil, [facility] [address] [place] [address] Social History Tobacco Use Types Packs/Day Years Used Date Smoking Tobacco: Never Smokeless Tobacco: Never Alcohol Use Standard Drinks/Week Comments Not Currently 100 (1 standard drink = 0.6 oz p ure alcohol) Currrently in recovery [facility] Utilities Answer Date Recorded In the past 12 months has [employer], gas, oil, or water [employer] threatened to shut off services in your home? No 05/01/2024 Social Connection and Isolation Panel Answer Date Recorded In a typical week, how many times do you talk on the phone with family, friends, or neighbors? Patient declined 05/01/2024 How often do you get togethe r with friends or relatives? Patient declined 05/01/2024 How often do you attend jewish or restoration serv ices? Patient declined 05/01/2024 Do you belong to any clubs o r organizations such as jewish groups, unions, fraternal or athletic groups, or [...] Total Score - Questions 1-9 0 04/13 [facility] - Occupational Stress Questionnaire Answer Date [...] any time in the past 12 m [place], were you homeless or living in a longterm (including now)? Patient declined 05/01/2024 Sexually Active [...] 04/08/2025 11:00 AM CDT Outpatient Clinic Visit [facility] [address] [place] [address] Yessi Carrillo [facility] [address] [place] [address] Discharge Disposition: Discharged to home or Selfcare documented as of this encounter Goals Goal Patient Goal Type Associated Problems Recent Progress Patient-Stated? Author I want to learn to not be codependent. Behavioral Health On track( 025 12:11 PM CDT) Yes Fouzia Jamil, PAM Note: Goal/Objective: Increase ability to set boundaries and cope with mental health symptoms. Anticipated Time Frame for Goal Completion: 6 months Goal Reviewed with: patient Readiness to change: Thinking about making a change Department associated with goal: [facility] Steps to achieve goal: [...] Depression Total Score: 0 05/02/20 3:03 PM SENIOR TECHNICAL ANALYST documented as of this encounter Care Teams Can Handler Relationship Specialty Start Date End Date Mendoza Izquierdo APRN, DISH WASHER #[address] [address] PCP - General Advanced Practice Nurse 05/02/24 documented as of this encounter
--- OUTSIDE RECORDS SUMMARY | 2025-03-27 07:40 | XMS_ITS | Patient Health Record ---
Author Organization [facility] [facility] Address [address] [facility] [address] [place] [address] Care Team Providers Care Continuous Washer Operator Name Role Phone Jamar Springer Unavailable [phone] Reason For Referral No Information Plan Of Treatment No Information
[2025-03-27] MEDS: SODIUM CHLORIDE 0.9% IV 1,000 ML 999 ML IV CONT (07:57)
[2025-03-27] MEDS: ONDANSETRON INJ 4 MG/2 ML VIAL IV PUSH ×2 (07:58→09:56)
[2025-03-27 08:00] LABS: Hematocrit 48.4 % (42.0-52.0); Hemoglobin 17.0 g/dL (14.0-18.0); Immature Granulocyte Percent A 0.2 % (0-0.5); Lymphocytes Absolute Auto 1.49 K/mm3 (0.9-3.2); Mean Corpuscular HGB Conc 35.1 g/dl (32-36); Mean Corpuscular Hemoglobin 32.2 pg (26-34); Mean Corpuscular Volume 91.7 fl (80-100); Nucleated Red Blood Cells Absolute Auto 0.000 K/mm3 (0.0-0.012); Nucleated Red Blood Cells Perc 0.0 % (0.0-0.2); Platelet Count Result 439 k/mm3 (150-375); Red Blood Count 5.28 M/mm3 (4.6-6.20); White Blood Count 5.8 K/mm3 (4.5-10.0)
[2025-03-27] MEDS: PANTOPRAZOLE SODIUM IV 40 MG VIAL IV PUSH (08:00)
[2025-03-27] MEDS: PHENobarbitaL sodium (*CRX) 130 MG/ML VIAL IV PUSH (08:07)
[2025-03-27 08:12] LABS: Lipase 86 U/L (23-300); Magnesium 1.7 mg/dL (1.6-2.3)
--- NOTE | 2025-03-27 08:58 | PC.NURSE ---
called [facility], stated the CMP is currently running at this itnv.
[2025-03-27 09:00] LABS: Alanine Aminotransferase 128 U/L (6-50); Albumin Level 5.1 g/dL (3.5-5.1); Alkaline Phosphatase 74 U/L (38-126); Anion Gap 25 mmol/L (4-12); Aspartate Amino Transferase 83 U/L (17-59); Bilirubin,Total 0.6 mg/dL (0.2-1.3); Blood Urea Nitrogen 20 mg/dL (9-20); Calcium 9.4 mg/dL (8.4-10.2); Carbon Dioxide 14 mmol/L (22-30); Chloride 103 mmol/L (98-107); Estimated CRCL calculation 117 ml/min; Estimated Glomerular Filt Rate > 60; Glucose 137 mg/dL (65-110); Potassium 3.9 mmol/L (3.4-5.0); Sodium 142 mmol/L (137-145); Total Protein 9.1 g/dL (6.3-8.2)
[2025-03-27] MEDS: chlordiazePOXIDE (*CRX) 25 MG CAPSULE 50 MG PO (09:56)
--- NOTE | 2025-03-27 10:41 | ED.ALCOHOL ---
HPI - Alcohol General Chief Complaint: Alcohol Stated Complaint: ETOH W/D AND THROWING UP BLOOD Time Seen by Provider: 03/27/25 07:29 Source: patient Mode of arrival: ambulatory Limitations: no limitations History of Present Illness HPI narrative: This is a 29-year-old male with history of alcohol abuse, presents to the emergency department complaining of nausea and vomiting related to alcohol withdrawal. The patient states he stopped drinking 2 days ago. Since then he has had multiple episodes of vomiting with some streaks of bright red blood. He denies bleeding from elsewhere, chest pain, shortness of breath or loss of consciousness. He has no other complaints at this time. Related Data Allergies Allergy/AdvReac Type Severity Reaction Status Date / Time amoxicillin Allergy Unknown Anaphylaxis Verified 11/22/24 08:33 Penicillins Allergy Unknown Anaphylaxis Verified 11/22/24 08:33 Review of Systems Review of Systems: All systems reviewed & are unremarkable except as noted in HPI and below PMFSH Past Medical History Medical History (Updated 03/27/25 @ 10:51 by Ernesto Schneider MD) Alcohol abuse Closed fracture of fifth metatarsal bone of right foot Family History Family History Father Diabetes mellitus Grandparent Diabetes mellitus Hypertension Mother Hypertension Social History Social History Social History: caffeine use Smoking status: Current every day smoker Tobacco type: e-cigarettes/vaping Alcohol intake: current Substance use: current Substance use type: marijuana Exam Narrative: GENERAL: Well-developed, well-nourished, appears nauseous actively vomiting HEAD: Normocephalic, atraumatic. EYES: PERRLA and EOMI. CHEST: Clear to auscultation. No respiratory distress. No wheezes rales or rhonchi HEART: Regular rate and rhythm. No murmur heard. Normal peripheral pulses. ABDOMEN: Soft, diffusely tender to palpation without rebound or guarding, nondistended, normal active bowel sounds. EXTREMITIES: Normal range of motion. No edema. SKIN: Warm, dry, no rash. NEURO: Alert and oriented x3. No focal deficit. Moving all 4 limbs spontaneously. Tremulous, no noted tongue fasciculations PSYCH: Normal mood and affect. Course Course Emergency Course: 10:43 - On re-evaluation after IV fluids, nausea medications and phenobarb, the patient states his symptoms are improved. He was able to tolerate p.o. Librium and p.o. fluids without recurrent vomiting. Cbc demonstrates elevated platelet count of 439 but is otherwise unremarkable. Chemistries demonstrate elevated ALT/AST of 128 and 83 respectively with a normal total bilirubin. Lipase within normal limits. I suspect the patient's symptoms are due to alcohol withdrawal. Will discharge with Librium taper, nausea medications recommendation for primary care follow-up. I discussed the findings and recommendations with the patient. Discussed return and emergency precautions including signs/symptoms of acute abdomen, delirium tremens and intractable vomiting. The patient voiced understanding and agreement with the plan. All questions answered to his satisfaction. Vital Signs Vital signs: Vital Signs Temperature 98.1 F 03/27/25 06:46 Pulse Rate 92 03/27/25 06:46 Respiratory Rate 16 03/27/25 06:46 Blood Pressure 140/88 03/27/25 06:46 Pulse Oximetry 99 03/27/25 06:46 Oxygen Delivery Room Air 03/27/25 06:46 Temperature 98.1 F 03/27/25 06:46 Pulse Rate 96 03/27/25 09:45 Respiratory Rate 19 03/27/25 09:45 Blood Pressure 127/95 H 03/27/25 08:01 Pulse Oximetry 98 03/27/25 09:45 Oxygen Delivery Room Air 03/27/25 06:46 MDM - Alcohol MDM Narrative Medical decision making narrative: Plan: Labs, benzodiazepines, CIWA protocol, IV fluids, and antiemetics, reassess Differential Diagnosis Differential diagnosis: Likely alcohol withdrawal syndrome and other (Metabolic abnormality, other) Lab Data 03/27/25 07:51 03/27/25 07:52 Labs: Lab Results 03/27/25 03/27/25 Range/Units 07:51 07:52 WBC 5.8 (4.5-10.0) K/mm3 RBC 5.28 (4.6-6.20) M/mm3 Hgb 17.0 (14.0-18.0) g/dL Hct 48.4 (42.0-52.0) % MCV 91.7 (80-100) fl MCH 32.2 (26-34) pg MCHC 35.1 (32-36) g/dl RDW 13.5 (11.5-14.5) % Plt Count 439 H (150-375) k/mm3 MPV 9.3 (7.4-10.4) fl Immature Gran % (Auto) 0.2 (0-0.5) % Neut % (Auto) 69.6 (45.5-73.1) % Lymph % (Auto) 25.7 (18.3-44.2) % [place] % (Auto) 4.0 (2.6-8.5) % Eos % (Auto) 0.0 (0-4.4) % Baso % (Auto) 0.5 (0.2-1.2) % Lymph # (Auto) 1.49 (0.9-3.2) K/mm3 [place] # (Auto) 0.2 (0.1-0.6) K/mm3 Eos # (Auto) 0.0 (0-0.3) K/mm3 Baso # (Auto) 0.0 (0.0-0.1) K/mm3 Abs Immat Gran (auto) 0.01 (0.00-0.031) K/mm3 Absolute Neuts (auto) 4.0 (1.3-6.7) K/mm3 Absolute Nucleated RBC 0.000 (0.0-0.012) K/mm3 Nucleated RBC % 0.0 (0.0-0.2) % Sodium 142 (137-145) mmol/L Potassium 3.9 (3.4-5.0) mmol/L Chloride 103 (98-107) mmol/L Carbon Dioxide 14 L (22-30) mmol/L Anion Gap 25 H (4-12) mmol/L BUN 20 (9-20) mg/dL Creatinine 0.85 (0.7-1.3) mg/dL Estim Creat Clear Calc 117 ml/min Estimated GFR > 60 (59 - ) Glucose 137 H (65-110) mg/dL Calcium 9.4 (8.4-10.2) mg/dL Magnesium 1.7 (1.6-2.3) mg/dL Total Bilirubin 0.6 (0.2-1.3) mg/dL AST 83 H (17-59) U/L ALT 128 H (6-50) U/L Alkaline Phosphatase 74 (38-126) U/L Total Protein 9.1 H (6.3-8.2) g/dL Albumin 5.1 (3.5-5.1) g/dL Lipase 86 (23-300) U/L Discharge Plan Discharge Clinical Impression: Dalia-Alberto tear Alcohol withdrawal syndrome Qualifiers: Complication of substance-induced condition: uncomplicated Qualified Code(s): F10.930 - Alcohol use, unspecified with withdrawal, uncomplicated Nausea & vomiting Qualifiers: Vomiting type: unspecified Qualified Code(s): R11.2 - Nausea with vomiting, unspecified Patient Disposition: Home Condition: Stable Instructions: Antibiotic Form, Alcohol Withdrawal (ED) Additional Instructions: You were seen in the emergency department. Your labs are not concerning for liver or kidney injury. Your given fluids, nausea medications and phenobarb. I recommend a Librium taper and follow-up with primary care doctor. If you develop severe abdominal pain, abdominal pain fevers, persistent vomiting, hallucinations, or if you have other emergent concerns for life, limb, or eyesight, return to the emergency department. Patient Language: Argentine Prescriptions: Continued chlordiazepoxide HCl 25 mg capsule 25 mg PO Q6-12H PRN (Reason: alcohol withdrawal) Qty: 15 0RF Rx Instructions: day 1 50 mg every 6-12 hrs, day 2 25mg every 6 hrs, day 3 25mg twice a day, day 4 25mg at bedtime ondansetron 4 mg tablet,disintegrating 4 mg PO Q8H PRN (Reason: nausea and vomiting) Qty: 14 0RF No Action lorazepam [Ativan] 0.5 mg tablet 0.5 mg PO BID PRN (Reason: anxiety) Qty: 10 0RF ibuprofen 800 mg tablet 800 mg PO TID PRN (Reason: pain) Qty: 30 0RF acetaminophen [Tylenol Extra Strength] 500 mg tablet 1,000 mg PO TID PRN (Reason: pain) Qty: 30 0RF Follow-up/Referrals: Octavio,DO Juan Diego [Primary Care Provider] - 1 Week Time of Disposition: 10:43
== END 2025-03-27 11:18 | disposition home or self-care (01) ==
PROVIDERS: Emergency Provider Preventive Medicine Aerospace Medicine; PCP Student in an Organized Health Care Education/Training Program
DX: F10.139 Alcohol abuse with withdrawal, unspecified (principal); Y90.9 Presence of alcohol in blood, level not specified; K22.6 Gastro-esophageal laceration-hemorrhage syndrome; F17.290 Nicotine dependence, other tobacco product, uncomplicated
CPT/HCPCS: 36415; 80053; 83690; 83735; 85025; 96361; 96374; 96375; 99284; A9270; J2405; J2470; J2560; J7030